=== PATIENT | female | born 1960 | race Caucasian/White ===

== ENCOUNTER 2020-01-07 13:03 | Emergency (ER) | payer BC, OTHER ==
--- NOTE | 2020-01-07 13:42 | EDM.PDOC ---
ED HPI GENERAL MEDICAL PROBLEM - General Chief Complaint: General Stated Complaint: FLUID BUILD UP IN R/LEG Time Seen by Provider: 01/07/20 13:20 - History of Present Illness INITIAL COMMENTS - FREE TEXT/NARRATIVE: Presents reporting right lower extremity swelling and shortness of breath. Patient states that on Monday she had some shortness of breath, went to see her primary provider, a chest x-ray revealed "little fluid around the lungs". She had some blood work and was placed on an antibiotic. This morning she has had increasing swelling in her right calf and it feels like "cement". She has a history of hypertension, depression and obesity. She does not smoke. Left Lower Leg Pain Score (Numeric/FACES): 7 - Related Data Allergies Allergy/AdvReac Type Severity Reaction Status Date / Time No Known Allergies Allergy Verified 01/07/20 13:47 Home Meds: Home Meds Sertraline [Zoloft] 50 mg PO DAILY 07/04/14 [History] valACYclovir HCl [Valtrex] 500 mg PO ASDIRECTED PRN 07/04/14 [History] Doxycycline [Vibramycin] 100 mg PO BID 01/07/20 [History] Rivaroxaban [Xarelto] 15 mg PO BID 21 Days #42 tab 01/07/20 [Rx] amLODIPine [Norvasc] 10 mg PO DAILY 01/07/20 [History] lisinopriL [Lisinopril] 30 mg PO DAILY 01/07/20 [History] Past Medical History HEENT History: Reports: None Cardiovascular History: Reports: Hypertension Respiratory History: Reports: None Gastrointestinal History: Reports: Colon Polyp Genitourinary History: Reports: None [employer] History: Reports: Musculoskeletal History: Reports: Fracture, Osteoarthritis Neurological History: Reports: None Psychiatric History: Reports: Depression Endocrine/Metabolic History: Reports: Obesity/BMI 30+ Hematologic History: Reports: None Immunologic History: Reports: None Oncologic (Cancer) History: Reports: None Dermatologic History: Reports: None - Past Surgical History Head Surgeries/Procedures: Reports: None GI Surgical History: Reports: Colonoscopy Female Surgical History: Reports: Hysterectomy ED ROS GENERAL - Review of Systems Review Of Systems: Comprehensive ROS is negative, except as noted in HPI. ED EXAM, GENERAL - Physical Exam Exam: See Below Exam Limited By: No Limitations General Appearance: Alert, No Apparent Distress Ears: Normal External Exam Respiratory/Chest: Lungs Clear, Normal Breath Sounds, Respiratory Distress (Mild tachypnea and dyspnea) Cardiovascular: Normal Peripheral Pulses, Regular Rate, Rhythm, No Murmur GI/Abdominal: Soft, Tender (Existing previously left upper quadrant) Back Exam: Normal Inspection, Full Range of Motion, Vertebral Tenderness (Over T10 pre-existing). No: CVA Tenderness (L), CVA Tenderness (R) Extremities: Other (Right calf ankle and forefoot swelling, pink. Strong pedal pulse. Full range of motion without hesitation or limitation of the ankle and toes. No tenderness.) Neurological: Alert, Oriented, Normal Cognition Psychiatric: Normal Affect, Normal Mood Skin Exam: Warm, Dry, Intact, Normal Color, No Rash Lymphatic: No Adenopathy Course - Vital Signs Last Recorded V/S: Last Vital Signs Temp 37.6 C 01/07/20 13:20 Pulse 69 01/07/20 15:26 Resp 16 01/07/20 15:26 BP 148/79 H 01/07/20 15:26 Pulse Ox 99 01/07/20 15:26 - Orders/Labs/Meds Labs: Laboratory Tests 01/07/20 01/07/20 Range/Units 13:37 13:37 WBC 11.07 H (4.0-11.0) K/uL RBC 4.30 (4.30-5.90) M/uL Hgb 13.5 (12.0-16.0) g/dL Hct 41.5 (36.0-46.0) % MCV 96.5 (80.0-98.0) fL MCH 31.4 (27.0-32.0) pg MCHC 32.5 (31.0-37.0) g/dL RDW Std Deviation 49.4 (28.0-62.0) fl RDW Coeff of Ashly 14 (11.0-15.0) % Plt Count 251 (150-400) K/uL MPV 10.40 (7.40-12.00) fL Neut % (Auto) 67.2 (48.0-80.0) % Lymph % (Auto) 21.1 (16.0-40.0) % Carver % (Auto) 8.3 (0.0-15.0) % Eos % (Auto) 2.9 (0.0-7.0) % Baso % (Auto) 0.5 (0.0-1.5) % Neut # (Auto) 7.4 H (1.4-5.7) K/uL Lymph # (Auto) 2.3 (0.6-2.4) K/uL Carver # (Auto) 0.9 H (0.0-0.8) K/uL Eos # (Auto) 0.3 (0.0-0.7) K/uL Baso # (Auto) 0.1 (0.0-0.1) K/uL Nucleated RBC % 0.0 /100WBC Nucleated RBCs # 0 K/uL Sodium 141 (136-145) mmol/L Potassium 3.7 (3.5-5.1) mmol/L Chloride 103 (98-107) mmol/L Carbon Dioxide 25.2 (21.0-32.0) mmol/L BUN 17 (7.0-18.0) mg/dL Creatinine 1.1 H (0.6-1.0) mg/dL Est Cr Clr Drug Dosing 50.91 mL/min Estimated GFR (MDRD) 50.7 ml/min Glucose 115 H (74-106) mg/dL Calcium 8.7 (8.5-10.1) mg/dL Total Bilirubin 0.4 (0.2-1.0) mg/dL AST 15 (15-37) IU/L ALT 20 (14-63) IU/L Alkaline Phosphatase 80 (46-116) U/L Total Protein 6.9 (6.4-8.2) g/dL Albumin 3.5 (3.4-5.0) g/dL Globulin 3.4 (2.6-4.0) g/dL Albumin/Globulin Ratio 1.0 (0.9-1.6) Meds: Medications Discontinued Medications Generic Name Dose Route Start Last Admin Trade Name Freq PRN Reason Stop Dose Admin Iopamidol 75 ml 01/07/20 15:12 01/07/20 15:13 Isovue Multipack-370 (76%) IVPUSH 01/07/20 15:13 75 ml ONETIME STA Administration Departure - Departure Time of Disposition: 15:43 Disposition: Home, Self-Care 01 Condition: Good Clinical Impression: Deep vein blood clot of right lower extremity Qualifiers: Affected thrombotic vein of extremity: popliteal Chronicity: acute Qualified Code(s): I82.431 - Acute embolism and thrombosis of right popliteal vein Pulmonary embolism Qualifiers: Pulmonary embolism type: single subsegmental (without acute cor pulmonale) Qualified Code(s): I26.93 - Single subsegmental pulmonary embolism without acute cor pulmonale - Discharge Information Prescriptions: Rivaroxaban [Xarelto] 15 mg PO BID 21 Days #42 tab Referrals: Mey Stevens DO [Primary Care Provider] - Forms: ED Department Discharge Additional Instructions: The following information is given to patients seen in the emergency department who are being discharged to home. This information is to outline your options for follow-up care. We provide all patients seen in our emergency department with a follow-up referral. The need for follow-up, as well as the timing and circumstances, are variable depending upon the specifics of your emergency department visit. If you don't have a primary care physician on staff, we will provide you with a referral. We always advise you to contact your personal physician following an emergency department visit to inform them of the circumstance of the visit and for follow-up with them and/or the need for any referrals to a consulting specialist. The emergency department will also refer you to a specialist when appropriate. This referral assures that you have the opportunity for follow-up care with a specialist. All of these measure are taken in an effort to provide you with optimal care, which includes your follow-up. Under all circumstances we always encourage you to contact your private physician who remains a resource for coordinating your care. When calling for follow-up care, please make the office aware that this follow-up is from your recent emergency room visit. If for any reason you are refused follow-up, please contact the [facility] Emergency Department at and asked to speak to the emergency department charge nurse. 1. Start Xarelto 15 mg twice daily for 21 days--RX sent to pharmacy. After that you will need to be on 20 mg once daily. Get that prescription from your primary provider. Take this medication with food 2. Follow-up with your primary provider. 3. Signs to return to the emergency room include shortness of breath, severe headache, worsening swelling. Sepsis Event Note (ED) - Focused Exam Vital Signs: Vital Signs Temp Pulse Resp BP Pulse Ox 01/07/20 15:26 69 16 148/79 H 99 01/07/20 13:20 37.6 C 78 20 173/93 H 95
[2020-01-07 14:07] LABS: CARBON DIOXIDE,CO2 25.2 mmol/L (21.0-32.0); POTASSIUM,K 3.7 mmol/L (3.5-5.1)
--- NOTE | 2020-01-07 14:31 | US ---
INDICATION: [id number] right lower extremity swelling TECHNIQUE: Ultrasound venous duplex upper right extremity. Compression venous exam was performed using coffey-scale, color Doppler, and spectral Doppler imaging. COMPARISON: None. FINDINGS: There is demonstration of noncompressibility of the popliteal vein with likely partial thrombus. The posterior tibials superficial femoral and common femoral veins are otherwise compressible. IMPRESSION: Demonstration of deep venous thrombosis within the popliteal vein. Dictated by Andrea Webb MD @ Jan 07 2020 2:27PM Signed by Dr. Andrea Webb @ Jan 07 2020 2:29PM
[2020-01-07] MEDS ORDERED: Iopamidol 755 MG/ML 500 ML Multipack Bottle IVPUSH STA (15:12)
--- NOTE | 2020-01-07 15:36 | CT ---
Indication: Shortness of breath, leg swelling Technique: Volumetric multidetector CT images of the chest were obtained after the administration of IV contrast. 75 cc Isovue 370 Comparison: None available. Findings: The thoracic inlet and thyroid gland are unremarkable. The thoracic aorta is nonaneurysmal. There are filling defects within the right lower lobe subsegmental pulmonary arteries. There is mild prominence of the main pulmonary artery. There is no definite intraventricular septal inversion. There is no mediastinal, hilar or axillary adenopathy. The trachea and bronchi are well aerated without significant bronchiectasis. There is dependent bibasilar atelectasis and parenchymal scarring without definite dense consolidation. There is focal rounded atelectasis within the anterior inferior aspect of the left upper lobe within the lingula. There is no evidence of pulmonary mass or suspicious pulmonary nodule. The partially visualized upper abdomen demonstrates moderate hepatomegaly and hepatic steatosis. There is a moderate hiatal hernia. The thoracic vertebral body heights are grossly maintained with moderate multilevel degenerative disc disease. There are flowing anterior osteophytes. There is no significant spondylolisthesis or displaced fracture. Impression: Demonstration of a small subsegmental filling defect within the right lower lobe pulmonary artery and dilatation of the main pulmonary artery commensurate with pulmonary embolus and elevated pulmonary arterial pressure. Somewhat rounded atelectasis appreciated within the lingula but otherwise no evidence of acute cardiopulmonary abnormalities appreciated. Findings discussed with Dr. Quinones at 3:35 p.m. 01/07/[address] Please note that all CT scans at this facility use dose modulation, iterative reconstruction, and/or weight-based dosing when appropriate to reduce radiation dose to as low as reasonably achievable. Dictated by Andrea Webb MD @ Jan 07 2020 3:23PM Signed by Dr. Andrea Webb @ Jan 07 2020 3:35PM
[2020-01-07 15:58] VITALS: BP 143/88; PULSE 66
== END 2020-01-07 16:02 | disposition home or self-care (01) ==
LOC: MW.ED 13:03
DX: I82.431 Acute embolism and thrombosis of right popliteal vein (principal); I26.93 Single subsegmental thrombotic pulmonary embolism without acute cor pulmonale; F32.9 Major depressive disorder, single episode, unspecified; I10 Essential (primary) hypertension; E66.9 Obesity, unspecified; Z68.41 Body mass index [BMI] 40.0-44.9, adult; Z79.01 Long term (current) use of anticoagulants; Z79.899 Other long term (current) drug therapy
CPT/HCPCS: 36415; 71275; 80053; 85025; 93971; 99285; Q9967; 99283

== ENCOUNTER 2021-01-27 19:26 | Inpatient (IN) | payer SELFPAY ==
[2021-01-27] MEDS ORDERED: Sodium Chloride 0.9% 10 ML Syringe FLUSH PRN (20:04)
[2021-01-27] MEDS ORDERED: Sodium Chloride 0.9% 2.5 ML Syringe FLUSH PRN (20:04)
[2021-01-27] MEDS ORDERED: Albuterol 8 GM Inhaler INH STA (20:05)
[2021-01-27] MEDS ORDERED: Benzonatate 100 MG Cap PO ONE (20:06)
--- NOTE | 2021-01-27 20:08 | EDM.PDOC ---
ED HPI GENERAL MEDICAL PROBLEM - General Chief Complaint: Respiratory Problem Stated Complaint: COVID POS, DIFFICULTY BREATHING, LOW OXYGEN Time Seen by Provider: 01/27/21 19:31 - History of Present Illness INITIAL COMMENTS - FREE TEXT/NARRATIVE: History of present illness: [] This 60-year-old female who is treated for hypertension and has a history of pulmonary embolus reports that she has cough and shortness of breath for 2 weeks. 17 January she was diagnosed as COVID-19 positive. She continued to progressively get more short of breath. Over the last 4 days she has had significant shortness of breath and dyspnea on exertion with cough and hemoptysis. Her primary symptom is shortness of breath. She has no chest pain she does have diffuse body aches. She is suffering fatigue. She did not take her blood pressure medicine today because she simply did not have the energy or forgot. Review of systems: As per history of present illness and below otherwise all systems reviewed and negative. Past medical history: As per history of present illness and as reviewed below otherwise noncontributory. Surgical history: As per history of present illness and as reviewed below otherwise noncontributory. Social history: No reported history of drug or alcohol abuse. Family history: As per history of present illness and as reviewed below otherwise noncontributory. Physical exam: Constitutional - well developed, well-nourished and in no acute distress HEENT - normocephalic, no evidence of trauma - external nose and mouth normal - no mass in neck and no JVD - mucosae moist EYES - full EOM, PERRL, no icterus - no evidence of inflammation, injection, or drainage Respiratory -moderate respiratory distress, equal bilateral expansion, lungs with scattered rhonchi. Slightly prolonged expiratory phase of respiration. Oxygen saturation in the 70s which is profoundly low. On 100% nonrebreather she is only saturating 90 to 91%. She is working a little bit to breathe. She does not have oxygen at home. Cardiovascular - Regular Rhythm with S1 and S2 appreciated and no murmur, gallop or rub. GI - abdomen soft without distension or organomegaly - normal bowel sounds - no guard or rebound Musculoskeletal no gross deformity of long bones or joints - no tenderness, swelling or edema Neurologic - Alert and oriented times four - CN II-XII grossly intact - motor sensory and coordination symmetrically normal Psychiatric - appropriate mood and affect with normal thought content Hematologic - No petechiae or purpura - mucosa appropriate color and sclera not pale - normal nail bed color and refill Integument - no rash or evidence of trauma - normal turgor Diagnostics: [] Therapeutics: [] Impression: [] Plan: [] Definitive disposition and diagnosis as appropriate pending reevaluation and review of above. - Related Data Allergies Allergy/AdvReac Type Severity Reaction Status Date / Time No Known Allergies Allergy Verified 01/27/21 20:26 Home Meds: Home Meds Sertraline [Zoloft] 100 mg PO DAILY 07/04/14 [History] valACYclovir HCl [Valtrex] 500 mg PO ASDIRECTED PRN 07/04/14 [History] Doxycycline [Vibramycin] 100 mg PO BID 01/07/20 [History] Rivaroxaban [Xarelto] 15 mg PO BID 21 Days #42 tab 01/07/20 [Rx] amLODIPine [Norvasc] 10 mg PO DAILY 01/07/20 [History] lisinopriL [Lisinopril] 30 mg PO DAILY 01/07/20 [History] Past Medical History HEENT History: Reports: None Cardiovascular History: Reports: Hypertension Respiratory History: Reports: None Gastrointestinal History: Reports: Colon Polyp Genitourinary History: Reports: None 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: Musculoskeletal History: Reports: Fracture, Osteoarthritis Neurological History: Reports: None Psychiatric History: Reports: Depression Endocrine/Metabolic History: Reports: Obesity/BMI 30+ Hematologic History: Reports: None Immunologic History: Reports: None Oncologic (Cancer) History: Reports: None Dermatologic History: Reports: None - Infectious Disease History Infectious Disease History: Reports: None - Past Surgical History Head Surgeries/Procedures: Reports: None GI Surgical History: Reports: Colonoscopy Female Surgical History: Reports: Hysterectomy Social & Family History - Caffeine Use Caffeine Use: Reports: Coffee, Tea ED ROS GENERAL - Review of Systems Review Of Systems: Comprehensive ROS is negative, except as noted in HPI. ED EXAM, GENERAL - Physical Exam Exam: See Below Free Text/Narrative:: My physical exam is in the HPI #1 Interpretation EKG Interpretation Comments: EKG done 01/27/2021 at 8:08 PM shows sinus rhythm heart rate 78 AK 142 axis 51 compared to 07/22/2014 no change impression no acute injury Course - Vital Signs Last Recorded V/S: Last Vital Signs Temp 39.2 C H 01/27/21 20:42 Pulse 66 01/27/21 22:00 Resp 24 H 01/27/21 22:00 BP 123/76 01/27/21 22:00 Pulse Ox 92 L 01/27/21 22:00 - Orders/Labs/Meds Orders: Active Orders 24 hr Category Date Time Status Communication Order [RC] STAT Care 01/27/21 20:08 Active RT Post Treatment Assessment [RC] Click to Edit Care 01/27/21 20:05 Active RT Pre-Treatment Assessment [RC] Click to Edit Care 01/27/21 20:05 Active INFLUENZA A+B AG SCREEN [] Stat Lab 01/27/21 22:00 Received Sodium Chloride 0.9% [Normal Saline] 1,000 ml Med 01/27/21 20:30 Active IV ASDIRECTED Sodium Chloride 0.9% [Saline Flush] Med 01/27/21 20:04 Active 10 ml FLUSH ASDIRECTED PRN Sodium Chloride 0.9% [Saline Flush] Med 01/27/21 20:04 Active 2.5 ml FLUSH ASDIRECTED PRN Isolation [COMM] Routine Oth 01/27/21 21:55 Active Saline Lock Insert [OM.PC] Stat Oth 01/27/21 20:04 Ordered Medication Orders Sodium Chloride (Normal Saline) 1,000 mls @ 125 mls/hr IV ASDIRECTED ELIZABETH Last Admin: 01/27/21 20:42 Dose: 125 mls/hr Documented by: MAYCOL Sodium Chloride (Sodium Chloride 0.9% 10 Ml Syringe) 10 ml FLUSH ASDIRECTED PRN PRN Reason: Keep Vein Open Last Admin: 01/27/21 20:42 Dose: 10 ml Documented by: MAYCOL Sodium Chloride (Sodium Chloride 0.9% 2.5 Ml Syringe) 2.5 ml FLUSH ASDIRECTED PRN PRN Reason: Keep Vein Open Last Admin: 01/27/21 20:42 Dose: 2.5 ml Documented by: MAYCOL Labs: Laboratory Tests 01/27/21 01/27/21 01/27/21 Range/Units 19:40 19:40 19:40 WBC 4.69 (4.0-11.0) K/uL RBC 4.50 (4.30-5.90) M/uL Hgb 14.0 (12.0-16.0) g/dL Hct 41.6 (36.0-46.0) % MCV 92.4 (80.0-98.0) fL MCH 31.1 (27.0-32.0) pg MCHC 33.7 (31.0-37.0) g/dL RDW Std Deviation 47.7 (28.0-62.0) fl RDW Coeff of Ashly 14 (11.0-15.0) % Plt Count 182 (150-400) K/uL MPV 10.30 (7.40-12.00) fL Neut % (Auto) 72.7 (48.0-80.0) % Lymph % (Auto) 17.7 (16.0-40.0) % [place] % (Auto) 9.2 (0.0-15.0) % Eos % (Auto) 0.0 (0.0-7.0) % Baso % (Auto) 0.4 (0.0-1.5) % Neut # (Auto) 3.4 (1.4-5.7) K/uL Lymph # (Auto) 0.8 (0.6-2.4) K/uL [place] # (Auto) 0.4 (0.0-0.8) K/uL Eos # (Auto) 0.0 (0.0-0.7) K/uL Baso # (Auto) 0.0 (0.0-0.1) K/uL Nucleated RBC % 0.0 /100WBC Nucleated RBCs # 0 K/uL INR 1.02 APTT 34.8 H (18.6-31.3) SEC D-Dimer, Quantitative 1.01 H (0.0-0.50) mg/L FEU Sodium 133 L (136-145) mmol/L Potassium 4.0 (3.5-5.1) mmol/L Chloride 99 (98-107) mmol/L Carbon Dioxide 24.7 (21.0-32.0) mmol/L BUN 12 (7.0-18.0) mg/dL Creatinine 1.0 (0.6-1.0) mg/dL Est Cr Clr Drug Dosing TNP Estimated GFR (MDRD) 56.4 ml/min Glucose 120 H (74-106) mg/dL Calcium 8.0 L (8.5-10.1) mg/dL Total Bilirubin 0.6 (0.2-1.0) mg/dL Direct Bilirubin (0.0-0.5) mg/dL AST 49 H (15-37) IU/L ALT 42 (14-63) IU/L Alkaline Phosphatase 45 L (46-116) U/L Troponin I < 0.050 (0.000-0.056) ng/mL B-Natriuretic Peptide (<100) PG/ML Total Protein 6.9 (6.4-8.2) g/dL Albumin 2.9 L (3.4-5.0) g/dL Globulin 4.0 (2.6-4.0) g/dL Albumin/Globulin Ratio 0.7 L (0.9-1.6) 01/27/21 01/27/21 Range/Units 19:40 19:40 WBC (4.0-11.0) K/uL RBC (4.30-5.90) M/uL Hgb (12.0-16.0) g/dL Hct (36.0-46.0) % MCV (80.0-98.0) fL MCH (27.0-32.0) pg MCHC (31.0-37.0) g/dL RDW Std Deviation (28.0-62.0) fl RDW Coeff of Ashly (11.0-15.0) % Plt Count (150-400) K/uL MPV (7.40-12.00) fL Neut % (Auto) (48.0-80.0) % Lymph % (Auto) (16.0-40.0) % [place] % (Auto) (0.0-15.0) % Eos % (Auto) (0.0-7.0) % Baso % (Auto) (0.0-1.5) % Neut # (Auto) (1.4-5.7) K/uL Lymph # (Auto) (0.6-2.4) K/uL [place] # (Auto) (0.0-0.8) K/uL Eos # (Auto) (0.0-0.7) K/uL Baso # (Auto) (0.0-0.1) K/uL Nucleated RBC % /100WBC Nucleated RBCs # K/uL INR APTT (18.6-31.3) SEC D-Dimer, Quantitative (0.0-0.50) mg/L FEU Sodium (136-145) mmol/L Potassium (3.5-5.1) mmol/L Chloride (98-107) mmol/L Carbon Dioxide (21.0-32.0) mmol/L BUN (7.0-18.0) mg/dL Creatinine (0.6-1.0) mg/dL Est Cr Clr Drug Dosing Estimated GFR (MDRD) ml/min Glucose (74-106) mg/dL Calcium (8.5-10.1) mg/dL Total Bilirubin (0.2-1.0) mg/dL Direct Bilirubin 0.20 (0.0-0.5) mg/dL AST (15-37) IU/L ALT (14-63) IU/L Alkaline Phosphatase (46-116) U/L Troponin I (0.000-0.056) ng/mL B-Natriuretic Peptide 48 (<100) PG/ML Total Protein (6.4-8.2) g/dL Albumin (3.4-5.0) g/dL Globulin (2.6-4.0) g/dL Albumin/Globulin Ratio (0.9-1.6) Meds: Medications Generic Name Dose Route Start Last Admin Trade Name Freq PRN Reason Stop Dose Admin Sodium Chloride 1,000 mls @ 125 mls/hr 01/27/21 20:30 01/27/21 20:42 Normal Saline IV 125 mls/hr ASDIRECTED ELIZABETH Administration Sodium Chloride 10 ml 01/27/21 20:04 01/27/21 20:42 Sodium Chloride 0.9% 10 Ml Syringe FLUSH 10 ml ASDIRECTED PRN Administration Keep Vein Open Sodium Chloride 2.5 ml 01/27/21 20:04 01/27/21 20:42 Sodium Chloride 0.9% 2.5 Ml Syringe FLUSH 2.5 ml ASDIRECTED PRN Administration Keep Vein Open Discontinued Medications Generic Name Dose Route Start Last Admin Trade Name Freq PRN Reason Stop Dose Admin Acetaminophen 650 mg 01/27/21 20:19 01/27/21 20:42 Acetaminophen 325 Mg Tab PO 01/27/21 20:20 650 mg NOW ONE Administration Acetaminophen Confirm 01/27/21 20:19 01/27/21 20:30 Acetaminophen 325 Mg Tab Administered 01/27/21 20:20 Not Given Dose 650 mg .ROUTE .STK-MED ONE Albuterol 8 gm 01/27/21 20:05 01/27/21 20:41 Albuterol 8 Gm Inhaler INH 01/27/21 20:06 8 gm ONETIME STA Administration Benzonatate 200 mg 01/27/21 20:06 01/27/21 20:43 Benzonatate 100 Mg Cap PO 01/27/21 20:07 200 mg ONETIME ONE Administration Remdesivir 200 mg/ Sodium 250 mls @ 250 mls/hr 01/27/21 20:51 01/27/21 21:40 Chloride IV 01/27/21 20:52 250 mls/hr ONETIME ONE Administration Ceftriaxone Sodium/Dextrose 1 50 mls @ 100 mls/hr 01/27/21 21:31 01/27/21 22:26 gm/ Premix IV 01/27/21 22:00 Not Given ONETIME ONE Iopamidol 75 ml 01/27/21 21:58 01/27/21 21:59 Iopamidol 755 Mg/Ml 500 Ml Multipack Bottle IVPUSH 01/27/21 21:59 75 ml ONETIME STA Administration Iopamidol 75 ml 01/27/21 21:58 01/27/21 22:00 Iopamidol 755 Mg/Ml 500 Ml Multipack Bottle IVPUSH 01/27/21 21:59 75 ml ONETIME STA Administration Ondansetron HCl 4 mg 01/27/21 20:19 01/27/21 20:43 Ondansetron 4 Mg/2 Ml Sdv IVPUSH 01/27/21 20:20 4 mg ONETIME ONE Administration Ondansetron HCl Confirm 01/27/21 20:19 01/27/21 20:31 Ondansetron 4 Mg/2 Ml Sdv Administered 01/27/21 20:20 Not Given Dose 4 mg .ROUTE .STK-MED ONE - Re-Assessments/Exams Free Text/Narrative Re-Assessment/Exam: 01/27/21 21:31 Patient felt better on oxygen. With a high flow at 94% FiO2 and 42 PSI she is maintaining oxygen at 9091% BiPAP set up in the ICU in case she needs it. Her D-dimer was positive so she is in CT getting a scan. 01/27/21 22:37 CT was inconclusive. The patient however is already on Xarelto. With hemoptysis I feel like it might be risky to add any additional anticoagulation. Discussed with Dr. Chung and he most graciously excepted the patient. With only one ICU bed available and BiPAP set up as a standby he requested I place her in that ICU bed. The ground ambulance available to us [facility] is already is left for [place] and will not be back until 3 or 4 in the morning at the earliest. If she should deteriorate and we had taken that unit bed transportation would be a serious issue. The safest thing for the patient would be to put her in the ICU now and try to transfer out in the morning. 01/27/21 22:38 Due to a high probability of clinically significant, life threatening deterioration, the patient required my highest level of preparedness to intervene emergently and I personally spent this critical care time directly and personally managing the patient. This critical care time included obtaining a history; examining the patient; pulse oximetry; ordering and review of studies; arranging urgent treatment with development of a management plan; evaluation of patient's response to treatment; frequent reassessment; and, discussions with other providers. This critical care time was performed to assess and manage the high probability of imminent, life-threatening deterioration that could result in multi-organ failure. It was exclusive of separately billable procedures and treating other patients and teaching time. 37 minutes. This patient was seen and evaluated during the 2019 SARS-CoV-2 novel coronavirus pandemic period. Community viral transmission is ongoing at time of this encounter and the emergency department is operating under pandemic response procedures. Departure - Departure Time of Disposition: 22:42 Disposition: Admitted As Inpatient 65 Condition: Fair Clinical Impression: Pneumonia due to COVID-19 virus, Hypoxia, Hemoptysis, Fever, History of pulmonary embolus (PE), Chronic anticoagulation - Discharge Information Referrals: Mey Stevens DO [Primary Care Provider] - Forms: ED Department Discharge Sepsis Event Note (ED) - Focused Exam Vital Signs: Vital Signs Temp Temp Pulse Resp BP Pulse Ox 01/27/21 22:00 66 24 H 123/76 92 L 01/27/21 21:00 65 24 H 114/61 92 L 11/24/21 20:42 39.2 C H 01/27/21 20:23 39.2 C H 91 24 H 141/78 H 73 L - My Orders Last 24 Hours: My Active Orders 01/27/21 20:04 Sodium Chloride 0.9% [Saline Flush] 10 ml FLUSH ASDIRECTED PRN Sodium Chloride 0.9% [Saline Flush] 2.5 ml FLUSH ASDIRECTED PRN Saline Lock Insert [OM.PC] Stat 01/27/21 20:05 RT Post Treatment Assessment [RC] Click to Edit RT Pre-Treatment Assessment [RC] Click to Edit 01/27/21 20:08 Communication Order [RC] STAT 01/27/21 20:30 Sodium Chloride 0.9% [Normal Saline] 1,000 ml IV ASDIRECTED 01/27/21 21:55 Isolation [COMM] Routine 01/27/21 22:00 INFLUENZA A+B AG SCREEN [RM] Stat - Assessment/Plan Last 24 Hours: My Active Orders 01/27/21 20:04 Sodium Chloride 0.9% [Saline Flush] 10 ml FLUSH ASDIRECTED PRN Sodium Chloride 0.9% [Saline Flush] 2.5 ml FLUSH ASDIRECTED PRN Saline Lock Insert [OM.PC] Stat 01/27/21 20:05 RT Post Treatment Assessment [RC] Click to Edit RT Pre-Treatment Assessment [RC] Click to Edit 01/27/21 20:08 Communication Order [RC] STAT 01/27/21 20:30 Sodium Chloride 0.9% [Normal Saline] 1,000 ml IV ASDIRECTED 01/27/21 21:55 Isolation [COMM] Routine 01/27/21 22:00 INFLUENZA A+B AG SCREEN [RM] Stat
[2021-01-27] MEDS ORDERED: Ondansetron 4 MG/2 ML SDV ONE (20:19)
[2021-01-27] MEDS ORDERED: Acetaminophen 325 MG Tab PO ONE (20:19)
[2021-01-27] MEDS ORDERED: Acetaminophen 325 MG Tab ONE (20:19)
[2021-01-27] MEDS ORDERED: Ondansetron 4 MG/2 ML SDV IVPUSH ONE (20:19)
[2021-01-27 20:25] LABS: BLOOD UREA NITROGEN,BUN 12 mg/dL (7.0-18.0); CARBON DIOXIDE,CO2 24.7 mmol/L (21.0-32.0); CHLORIDE,CL 99 mmol/L (98-107); GLUCOSE RANDOM 120 mg/dL (74-106); SODIUM,NA 133 mmol/L (136-145)
--- NOTE | 2021-01-27 20:38 | CR ---
INDICATION: Dyspnea. TECHNIQUE: Upright portable AP image of the chest. COMPARISON: None. FINDINGS: Shallow inspiration. Lower left lung infiltrate, right upper lobe infiltrate with some degree of atelectasis and presumed medial right base infiltrate. No obvious pleural effusion. Heart size at the upper limit of normal. Pulmonary veins grossly normal in caliber. No significant bony abnormality. IMPRESSION: Bilateral infiltrates, as above. Dictated by Vin Gordon MD @ 01/27/2021 8:35:58 PM (Electronically Signed)
[2021-01-27] MEDS: Sodium Chloride 0.9% 1,000 ML IV SCH (20:42)
[2021-01-27] MEDS ORDERED: REMDESIVIR 200 MG in Sodium Chloride 0.9% 250 ML IV ONE (20:51)
[2021-01-27] MEDS ORDERED: cefTRIAXone 1 GM in Premix Bag 1 BAG IV ONE (21:31)
[2021-01-27] MEDS ORDERED: Iopamidol 755 MG/ML 500 ML Multipack Bottle IVPUSH STA ×2 (21:58)
--- NOTE | 2021-01-27 22:29 | CT ---
INDICATION: COVID positive, positive D-dimer, hypoxia TECHNIQUE: CT chest pulmonary PE protocol acquired with 75 cc Isovue 370 IV contrast. COMPARISON: None FINDINGS: Cardiovascular structures: Suboptimal opacification of the pulmonary arteries. Pulmonary embolism cannot be excluded with this exam. The main pulmonary artery measures 4.2 cm. Cardiomegaly. No sign of aneurysm in the thoracic aorta. Mediastinum and jose: 1.3 cm right paratracheal lymph node. Small hiatal hernia. Lungs: Patchy areas of airspace consolidation in both lungs. Pleura and pericardium: No effusions. Chest wall and axilla: No mass or adenopathy. Upper abdomen: Hepatic steatosis. Bones: No significant findings. IMPRESSION: Suboptimal opacification of the pulmonary arteries. Pulmonary embolism cannot be excluded with this exam. Patchy areas of airspace consolidation in both lungs consistent with infection. The appearance is more typical for bacterial pneumonia although findings could be due to COVID-19 infection. Right paratracheal lymphadenopathy. Cardiomegaly. Dilated main pulmonary artery suggests pulmonary arterial hypertension. Hepatic steatosis. Small hiatal hernia. Please note that all CT scans at this facility use dose modulation, iterative reconstruction, and/or weight-based dosing when appropriate to reduce radiation dose to as low as reasonably achievable. Dictated by Belem Garnett MD @ 01/27/2021 10:29:09 PM (Electronically Signed)
[2021-01-27] MEDS ORDERED: Acetaminophen/HYDROcodone 325-5 MG Tab PO PRN (22:49)
[2021-01-27] MEDS ORDERED: Albuterol 0.083% 2.5 MG/3 ML Neb Soln NEB PRN (22:49)
[2021-01-27] MEDS ORDERED: Rivaroxaban 15 MG Tab PO SCH ×2 (23:00→23:15)
[2021-01-27] MEDS ORDERED: Enoxaparin 40 MG/0.4 ML Syringe SUBCUT SCH (23:00)
[2021-01-28] MEDS: Rivaroxaban 10 MG Tab PO SCH ×2 (01:18→20:01)
[2021-01-28] MEDS: Albuterol/Ipratropium 3.0-0.5 MG/3 ML Neb Soln NEB SCH ×6 (01:19→21:02)
[2021-01-28] MEDS: Sodium Chloride 0.9% 1,000 ML IV SCH ×2 (04:58→13:00)
[2021-01-28 07:38] LABS: BLOOD UREA NITROGEN,BUN 12 mg/dL (7.0-18.0); CARBON DIOXIDE,CO2 26.3 mmol/L (21.0-32.0); CHLORIDE,CL 104 mmol/L (98-107); GLUCOSE RANDOM 90 mg/dL (74-106); SODIUM,NA 139 mmol/L (136-145)
[2021-01-28] MEDS ORDERED: Dexamethasone 4 MG Tab PO SCH (09:00)
[2021-01-28] MEDS: amLODIPine 5 MG Tab PO SCH (09:30)
[2021-01-28] MEDS: Sertraline 50 MG Tab PO SCH (10:15)
[2021-01-28] MEDS: Lisinopril 10 MG Tab PO SCH (10:19)
--- NOTE | 2021-01-28 14:10 | PCM.HP.2 ---
H&P History of Present Illness - General Date of Service: 01/27/21 Admit Problem/Dx: Admission Diagnosis/Problem Admission Diagnosis/Problem Hypoxia - History of Present Illness Initial Comments - Free Text/Narative: This 60-year-old female who is treated for hypertension and has a history of pulmonary embolus reports that she has cough and shortness of breath for 2 weeks. 17 January she was diagnosed as COVID-19 positive. She continued to progressively get more short of breath. Over the last 4 days she has had significant shortness of breath and dyspnea on exertion with cough and hemoptysis. Her primary symptom is shortness of breath. She has no chest pain she does have diffuse body aches. She is suffering fatigue. She did not take her blood pressure medicine today because she simply did not have the energy or forgot. - Related Data Allergies/Adverse Reactions: Allergies Allergy/AdvReac Type Severity Reaction Status Date / Time No Known Allergies Allergy Verified 01/28/21 01:01 Home Medications: Home Meds Sertraline [Zoloft] 100 mg PO DAILY 07/04/14 [History] amLODIPine [Norvasc] 10 mg PO DAILY 01/07/20 [History] lisinopriL [Lisinopril] 30 mg PO DAILY 01/07/20 [History] Rivaroxaban [Xarelto] 20 mg PO BEDTIME 01/28/21 [History] Past Medical History HEENT History: Reports: None Cardiovascular History: Reports: Hypertension Respiratory History: Reports: None Gastrointestinal History: Reports: Colon Polyp Genitourinary History: Reports: None [employer] History: Reports: Musculoskeletal History: Reports: Fracture, Osteoarthritis Neurological History: Reports: None Psychiatric History: Reports: Depression Endocrine/Metabolic History: Reports: Obesity/BMI 30+ Hematologic History: Reports: None Immunologic History: Reports: None Oncologic (Cancer) History: Reports: None Dermatologic History: Reports: None - Infectious Disease History Infectious Disease History: Reports: None - Past Surgical History Head Surgeries/Procedures: Reports: None Other HEENT Surgeries/Procedures: wears corrective glasses- near sighted GI Surgical History: Reports: Colonoscopy Female Surgical History: Reports: Hysterectomy, Oophorectomy Other Female Surgeries/Procedures: ovarian cyst- right ovary removed Social & Family History - Family History Family Medical History: No Pertinent Family History - Tobacco Use Tobacco Use Status *Q: Former Tobacco User Years of Tobacco use: 10 Used Tobacco, but Quit: Yes Month/Year Tobacco Last Used: 2015 Second Hand Smoke Exposure: Yes - Caffeine Use Caffeine Use: Reports: Tea - Recreational Drug Use Recreational Drug Use: No H&P Review of Systems - Review of Systems: Review Of Systems: See Below Exam - Exam Exam: See Below - Vital Signs Vital Signs: Last Vital Signs Temp 97.5 F 01/28/21 05:00 Pulse 66 01/27/21 23:00 Resp 21 H 01/28/21 07:00 BP 119/64 01/28/21 10:19 Pulse Ox 88 L 01/28/21 07:00 Weight: 262 lb 11.2 oz - Exam Physical Exam Comments:: General: Obese female. In some degree respiratory distress. CVS: S1S2 appreciated. RRR lungs: Diminished breath sounds. pa: soft, non tender. bowel sounds present ext: no clubbing, cyanosis or edema neuro: moves all extremities. No focal deficits. psych: stable mood and affect - Patient Data Lab Results Last 24 hrs: Laboratory Results - last 24 hr 01/27/21 01/27/21 01/27/21 Range/Units 19:40 19:40 19:40 WBC 4.69 (4.0-11.0) K/uL RBC 4.50 (4.30-5.90) M/uL Hgb 14.0 (12.0-16.0) g/dL Hct 41.6 (36.0-46.0) % MCV 92.4 (80.0-98.0) fL MCH 31.1 (27.0-32.0) pg MCHC 33.7 (31.0-37.0) g/dL RDW Std Deviation 47.7 (28.0-62.0) fl RDW Coeff of Ashly 14 (11.0-15.0) % Plt Count 182 (150-400) K/uL MPV 10.30 (7.40-12.00) fL Neut % (Auto) 72.7 (48.0-80.0) % Lymph % (Auto) 17.7 (16.0-40.0) % [place] % (Auto) 9.2 (0.0-15.0) % Eos % (Auto) 0.0 (0.0-7.0) % Baso % (Auto) 0.4 (0.0-1.5) % Neut # (Auto) 3.4 (1.4-5.7) K/uL Lymph # (Auto) 0.8 (0.6-2.4) K/uL [place] # (Auto) 0.4 (0.0-0.8) K/uL Eos # (Auto) 0.0 (0.0-0.7) K/uL Baso # (Auto) 0.0 (0.0-0.1) K/uL Nucleated RBC % 0.0 /100WBC Nucleated RBCs # 0 K/uL INR 1.02 APTT 34.8 H (18.6-31.3) SEC D-Dimer, Quantitative 1.01 H (0.0-0.50) mg/L FEU Sodium 133 L (136-145) mmol/L Potassium 4.0 (3.5-5.1) mmol/L Chloride 99 (98-107) mmol/L Carbon Dioxide 24.7 (21.0-32.0) mmol/L BUN 12 (7.0-18.0) mg/dL Creatinine 1.0 (0.6-1.0) mg/dL Est Cr Clr Drug Dosing TNP Estimated GFR (MDRD) 56.4 ml/min Glucose 120 H (74-106) mg/dL Calcium 8.0 L (8.5-10.1) mg/dL Total Bilirubin 0.6 (0.2-1.0) mg/dL Direct Bilirubin (0.0-0.5) mg/dL AST 49 H (15-37) IU/L ALT 42 (14-63) IU/L Alkaline Phosphatase 45 L (46-116) U/L Troponin I < 0.050 (0.000-0.056) ng/mL B-Natriuretic Peptide (<100) PG/ML Total Protein 6.9 (6.4-8.2) g/dL Albumin 2.9 L (3.4-5.0) g/dL Globulin 4.0 (2.6-4.0) g/dL Albumin/Globulin Ratio 0.7 L (0.9-1.6) SARS-CoV-2 RNA (JOANN) (NEGATIVE) 01/27/21 01/27/21 01/27/21 Range/Units 19:40 19:40 22:00 WBC (4.0-11.0) K/uL RBC (4.30-5.90) M/uL Hgb (12.0-16.0) g/dL Hct (36.0-46.0) % MCV (80.0-98.0) fL MCH (27.0-32.0) pg MCHC (31.0-37.0) g/dL RDW Std Deviation (28.0-62.0) fl RDW Coeff of Ashly (11.0-15.0) % Plt Count (150-400) K/uL MPV (7.40-12.00) fL Neut % (Auto) (48.0-80.0) % Lymph % (Auto) (16.0-40.0) % [place] % (Auto) (0.0-15.0) % Eos % (Auto) (0.0-7.0) % Baso % (Auto) (0.0-1.5) % Neut # (Auto) (1.4-5.7) K/uL Lymph # (Auto) (0.6-2.4) K/uL [place] # (Auto) (0.0-0.8) K/uL Eos # (Auto) (0.0-0.7) K/uL Baso # (Auto) (0.0-0.1) K/uL Nucleated RBC % /100WBC Nucleated RBCs # K/uL INR APTT (18.6-31.3) SEC D-Dimer, Quantitative (0.0-0.50) mg/L FEU Sodium (136-145) mmol/L Potassium (3.5-5.1) mmol/L Chloride (98-107) mmol/L Carbon Dioxide (21.0-32.0) mmol/L BUN (7.0-18.0) mg/dL Creatinine (0.6-1.0) mg/dL Est Cr Clr Drug Dosing Estimated GFR (MDRD) ml/min Glucose (74-106) mg/dL Calcium (8.5-10.1) mg/dL Total Bilirubin (0.2-1.0) mg/dL Direct Bilirubin 0.20 (0.0-0.5) mg/dL AST (15-37) IU/L ALT (14-63) IU/L Alkaline Phosphatase (46-116) U/L Troponin I (0.000-0.056) ng/mL B-Natriuretic Peptide 48 (<100) PG/ML Total Protein (6.4-8.2) g/dL Albumin (3.4-5.0) g/dL Globulin (2.6-4.0) g/dL Albumin/Globulin Ratio (0.9-1.6) SARS-CoV-2 RNA (JOANN) POSITIVE H (NEGATIVE) 01/28/21 01/28/21 Range/Units 06:15 06:15 WBC 4.02 (4.0-11.0) K/uL RBC 4.27 L (4.30-5.90) M/uL Hgb 13.4 (12.0-16.0) g/dL Hct 40.1 (36.0-46.0) % MCV 93.9 (80.0-98.0) fL MCH 31.4 (27.0-32.0) pg MCHC 33.4 (31.0-37.0) g/dL RDW Std Deviation 49.6 (28.0-62.0) fl RDW Coeff of Ashly 15 (11.0-15.0) % Plt Count 186 (150-400) K/uL MPV 10.30 (7.40-12.00) fL Neut % (Auto) 58.5 (48.0-80.0) % Lymph % (Auto) 33.3 (16.0-40.0) % [place] % (Auto) 8.0 (0.0-15.0) % Eos % (Auto) 0.0 (0.0-7.0) % Baso % (Auto) 0.2 (0.0-1.5) % Neut # (Auto) 2.4 (1.4-5.7) K/uL Lymph # (Auto) 1.3 (0.6-2.4) K/uL [place] # (Auto) 0.3 (0.0-0.8) K/uL Eos # (Auto) 0.0 (0.0-0.7) K/uL Baso # (Auto) 0.0 (0.0-0.1) K/uL Nucleated RBC % 1.1 /100WBC Nucleated RBCs # 0 K/uL INR APTT (18.6-31.3) SEC D-Dimer, Quantitative (0.0-0.50) mg/L FEU Sodium 139 (136-145) mmol/L Potassium 4.0 (3.5-5.1) mmol/L Chloride 104 (98-107) mmol/L Carbon Dioxide 26.3 (21.0-32.0) mmol/L BUN 12 (7.0-18.0) mg/dL Creatinine 0.9 (0.6-1.0) mg/dL Est Cr Clr Drug Dosing 61.45 Estimated GFR (MDRD) > 60.0 ml/min Glucose 90 (74-106) mg/dL Calcium 7.8 L (8.5-10.1) mg/dL Total Bilirubin (0.2-1.0) mg/dL Direct Bilirubin (0.0-0.5) mg/dL AST (15-37) IU/L ALT (14-63) IU/L Alkaline Phosphatase (46-116) U/L Troponin I (0.000-0.056) ng/mL B-Natriuretic Peptide (<100) PG/ML Total Protein (6.4-8.2) g/dL Albumin (3.4-5.0) g/dL Globulin (2.6-4.0) g/dL Albumin/Globulin Ratio (0.9-1.6) SARS-CoV-2 RNA (JOANN) (NEGATIVE) Result Diagrams: 01/28/21 06:15 01/28/21 06:15 Rod Results Last 24 hrs: Microbiology 01/27/21 22:00 Influenza Type A Antigen Screen - Final Nasopharyngeal Swab NEGATIVE INFLUENZA A VIRUS AG REFERENCE RANGE: NEGATIVE Influenza Type B Antigen Screen - Final NEGATIVE INFLUENZA B VIRUS AG REFERENCE RANGE: NEGATIVE Sepsis Event Note - Evaluation Sepsis Screening Result: Possible Sepsis Risk - Focused Exam Vital Signs: Vital Signs Temp Resp BP BP Pulse Ox 01/28/21 10:19 119/64 01/28/21 09:30 119/64 01/28/21 07:00 21 H 113/62 88 L 01/28/21 06:00 28 H 111/67 88 L 01/28/21 05:00 97.5 F 25 H 117/61 87 L 01/28/21 04:00 29 H 106/62 91 L 01/28/21 03:00 27 H 108/60 88 L 01/28/21 02:00 26 H 122/67 92 L - Problem List (1) Pneumonia due to COVID-19 virus SNOMED Code(s): 380515227412765065 ICD Code: U07.1 - COVID-19; J12.82 - PNEUMONIA DUE TO CORONAVIRUS DISEASE 2019 Status: Acute Current Visit: Yes (2) Acute respiratory failure due to COVID-19 SNOMED Code(s): 468437654 ICD Code: U07.1 - COVID-19; J96.00 - ACUTE RESPIRATORY FAILURE, UNSP W HYPOXIA OR HYPERCAPNIA Status: Acute Current Visit: Yes Problem List Initiated/Reviewed/Updated: Yes Orders Last 24hrs: Active Orders 24 hr Category Date Time Status Admission Status [Patient Status] [ADT] Stat ADT 01/27/21 22:39 Active Oxygen Therapy [RC] PRN Care 01/27/21 22:49 Active Pulse Oximetry [RC] CONTINUOUS Care 01/27/21 22:50 Active RT Aerosol Therapy [RC] ASDIRECTED Care 01/27/21 22:54 Active RT Incentive Spirometry [RC] Q1HWA Care 01/27/21 23:00 Active RT Post Treatment Assessment [RC] Click to Edit Care 01/27/21 20:05 Active RT Pre-Treatment Assessment [RC] Click to Edit Care 01/27/21 20:05 Active Up ad Hansa [RC] ASDIRECTED Care 01/27/21 22:49 Active VTE/DVT Education [RC] PER UNIT ROUTINE Care 01/27/21 22:49 Active Vaccine to be Administered/Admin Charge [RC] ASDIRECTED Care 01/28/21 00:12 Active Vital Signs [RC] Q1H Care 01/27/21 22:49 Active Regular Diet [DIET] Diet 01/28/21 Breakfast Active Acetaminophen/HYDROcodone [[place] 325-5 MG] Med 01/27/21 22:49 Active 1 tab PO Q4H PRN Albuterol [Proventil Neb Soln] Med 01/27/21 22:49 Active 2.5 mg NEB Q2H PRN Albuterol/Ipratropium [DuoNeb 3.0-0.5 MG/3 ML] Med 01/28/21 02:00 Active 3 ml NEB Q4HRRT Baricitinib [Olumiant] Med 01/27/21 23:15 Active 4 mg PO DAILY Remdesivir 100 mg Med 01/28/21 21:00 Active Sodium Chloride 0.9% [Normal Saline AdvBag] 100 ml IV Q24H Rivaroxaban [Xarelto] Med 01/28/21 01:07 Active 20 mg PO BEDTIME Sertraline [Zoloft] Med 01/28/21 09:00 Active 100 mg PO DAILY Sodium Chloride 0.9% [Normal Saline] 1,000 ml Med 01/27/21 20:30 Active IV ASDIRECTED Sodium Chloride 0.9% [Saline Flush] Med 01/27/21 20:04 Active 10 ml FLUSH ASDIRECTED PRN Sodium Chloride 0.9% [Saline Flush] Med 01/27/21 20:04 Active 2.5 ml FLUSH ASDIRECTED PRN amLODIPine [Norvasc] Med 01/28/21 09:00 Active 10 mg PO DAILY dexAMETHasone Med 01/28/21 09:00 Active 4 mg PO DAILY lisinopriL [Prinivil] Med 01/28/21 09:00 Active 30 mg PO DAILY Isolation [COMM] Routine Oth 01/27/21 21:55 Active Saline Lock Insert [OM.PC] Stat Oth 01/27/21 20:04 Ordered Resuscitation Status Routine Resus Stat 01/27/21 22:49 Ordered Medication Orders Hydrocodone Bitart/Acetaminophen (Acetaminophen/Hydrocodone 325-5 Mg Tab) 1 tab PO Q4H PRN PRN Reason: Pain (moderate 4-6) Albuterol (Albuterol 0.083% 2.5 Mg/3 Ml Neb Soln) 2.5 mg NEB Q2H PRN PRN Reason: Shortness Of Breath/wheezing Albuterol/Ipratropium (Albuterol/Ipratropium 3.0-0.5 Mg/3 Ml Neb Soln) 3 ml NEB Q4HRRT [facility] Last Admin: 01/28/21 10:23 Dose: 3 ml Documented by: Admin: 01/28/21 06:22 Dose: 3 ml Documented by: Admin: 01/28/21 01:19 Dose: 3 ml Documented by: SRAVANTHI Amlodipine Besylate (Amlodipine 5 Mg Tab) 10 mg PO DAILY [facility] Last Admin: 01/28/21 09:30 Dose: 10 mg Documented by: BRYANT Baricitinib (Baricitinib 2 Mg Tab) 4 mg PO DAILY [facility] Stop: 02/10/21 23:16 Last Admin: 01/28/21 10:17 Dose: 4 mg Documented by: Admin: 01/28/21 01:18 Dose: 4 mg Documented by: SRAVANTHI Dexamethasone (Dexamethasone 4 Mg Tab) 4 mg PO DAILY [facility] Last Admin: 01/28/21 10:20 Dose: 4 mg Documented by: BRYANT Sodium Chloride (Normal Saline) 1,000 mls @ 125 mls/hr IV ASDIRECTED [facility] Last Admin: 01/28/21 04:58 Dose: 125 mls/hr Documented by: Infusion: 01/28/21 04:42 Dose: 125 mls/hr Documented by: Admin: 01/27/21 20:42 Dose: 125 mls/hr Documented by: MAYCOL Remdesivir 100 mg/ Sodium (Chloride) 100 mls @ 100 mls/hr IV Q24H [facility] Stop: 01/31/21 21:59 Lisinopril (Lisinopril 10 Mg Tab) 30 mg PO DAILY [facility] Last Admin: 01/28/21 10:19 Dose: 30 mg Documented by: BRYANT Rivaroxaban (Rivaroxaban 10 Mg Tab) 20 mg PO BEDTIME [facility] Last Admin: 01/28/21 01:18 Dose: 20 mg Documented by: SRAVANTHI Sertraline HCl (Sertraline 50 Mg Tab) 100 mg PO DAILY [facility] Last Admin: 01/28/21 10:15 Dose: 100 mg Documented by: BRYANT Sodium Chloride (Sodium Chloride 0.9% 10 Ml Syringe) 10 ml FLUSH ASDIRECTED PRN PRN Reason: Keep Vein Open Last Admin: 01/27/21 20:42 Dose: 10 ml Documented by: MAYCOL Sodium Chloride (Sodium Chloride 0.9% 2.5 Ml Syringe) 2.5 ml FLUSH ASDIRECTED PRN PRN Reason: Keep Vein Open Last Admin: 01/27/21 20:42 Dose: 2.5 ml Documented by: MAYCOL Assessment/Plan Comment:: Acute respiratory failure secondary with COVID 19 pneumonia Admit pt to the ICU High flow NC alternating with CPAP Encourage proning Incentive spirometry Covid 19 infection Start pt on decadron, remdesivir and biracitinib [place] not on CPAP at home Will have CPAP Q HS Obesity lifestyle modification Full code VTE prophylaxis lovenox SQ
--- NOTE | 2021-01-28 14:43 | PCM.PN ---
- General Info Date of Service: 01/28/21 - Patient Data Vitals - Most Recent: Last Vital Signs Temp 97.5 F 01/28/21 05:00 Pulse 66 01/27/21 23:00 Resp 21 H 01/28/21 07:00 BP 119/64 01/28/21 10:19 Pulse Ox 88 L 01/28/21 07:00 Weight - Most Recent: 262 lb 11.2 oz I&O - Last 24 Hours: Intake & Output 01/27/21 01/28/21 01/28/21 22:59 06:59 14:59 Intake Total 150 Output Total 400 Balance -250 Lab Results Last 24 Hours: Laboratory Results - last 24 hr 01/27/21 01/27/21 01/27/21 Range/Units 19:40 19:40 19:40 WBC 4.69 (4.0-11.0) K/uL RBC 4.50 (4.30-5.90) M/uL Hgb 14.0 (12.0-16.0) g/dL Hct 41.6 (36.0-46.0) % MCV 92.4 (80.0-98.0) fL MCH 31.1 (27.0-32.0) pg MCHC 33.7 (31.0-37.0) g/dL RDW Std Deviation 47.7 (28.0-62.0) fl RDW Coeff of Ashly 14 (11.0-15.0) % Plt Count 182 (150-400) K/uL MPV 10.30 (7.40-12.00) fL Neut % (Auto) 72.7 (48.0-80.0) % Lymph % (Auto) 17.7 (16.0-40.0) % Leslie % (Auto) 9.2 (0.0-15.0) % Eos % (Auto) 0.0 (0.0-7.0) % Baso % (Auto) 0.4 (0.0-1.5) % Neut # (Auto) 3.4 (1.4-5.7) K/uL Lymph # (Auto) 0.8 (0.6-2.4) K/uL Leslie # (Auto) 0.4 (0.0-0.8) K/uL Eos # (Auto) 0.0 (0.0-0.7) K/uL Baso # (Auto) 0.0 (0.0-0.1) K/uL Nucleated RBC % 0.0 /100WBC Nucleated RBCs # 0 K/uL INR 1.02 APTT 34.8 H (18.6-31.3) SEC D-Dimer, Quantitative 1.01 H (0.0-0.50) mg/L FEU Sodium 133 L (136-145) mmol/L Potassium 4.0 (3.5-5.1) mmol/L Chloride 99 (98-107) mmol/L Carbon Dioxide 24.7 (21.0-32.0) mmol/L BUN 12 (7.0-18.0) mg/dL Creatinine 1.0 (0.6-1.0) mg/dL Est Cr Clr Drug Dosing TNP Estimated GFR (MDRD) 56.4 ml/min Glucose 120 H (74-106) mg/dL Calcium 8.0 L (8.5-10.1) mg/dL Total Bilirubin 0.6 (0.2-1.0) mg/dL Direct Bilirubin (0.0-0.5) mg/dL AST 49 H (15-37) IU/L ALT 42 (14-63) IU/L Alkaline Phosphatase 45 L (46-116) U/L Troponin I < 0.050 (0.000-0.056) ng/mL C-Reactive Protein (0.00-0.90) mg/dL B-Natriuretic Peptide (<100) PG/ML Total Protein 6.9 (6.4-8.2) g/dL Albumin 2.9 L (3.4-5.0) g/dL Globulin 4.0 (2.6-4.0) g/dL Albumin/Globulin Ratio 0.7 L (0.9-1.6) SARS-CoV-2 RNA (JOANN) (NEGATIVE) 01/27/21 01/27/21 01/27/21 Range/Units 19:40 19:40 22:00 WBC (4.0-11.0) K/uL RBC (4.30-5.90) M/uL Hgb (12.0-16.0) g/dL Hct (36.0-46.0) % MCV (80.0-98.0) fL MCH (27.0-32.0) pg MCHC (31.0-37.0) g/dL RDW Std Deviation (28.0-62.0) fl RDW Coeff of Ashly (11.0-15.0) % Plt Count (150-400) K/uL MPV (7.40-12.00) fL Neut % (Auto) (48.0-80.0) % Lymph % (Auto) (16.0-40.0) % Leslie % (Auto) (0.0-15.0) % Eos % (Auto) (0.0-7.0) % Baso % (Auto) (0.0-1.5) % Neut # (Auto) (1.4-5.7) K/uL Lymph # (Auto) (0.6-2.4) K/uL Leslie # (Auto) (0.0-0.8) K/uL Eos # (Auto) (0.0-0.7) K/uL Baso # (Auto) (0.0-0.1) K/uL Nucleated RBC % /100WBC Nucleated RBCs # K/uL INR APTT (18.6-31.3) SEC D-Dimer, Quantitative (0.0-0.50) mg/L FEU Sodium (136-145) mmol/L Potassium (3.5-5.1) mmol/L Chloride (98-107) mmol/L Carbon Dioxide (21.0-32.0) mmol/L BUN (7.0-18.0) mg/dL Creatinine (0.6-1.0) mg/dL Est Cr Clr Drug Dosing Estimated GFR (MDRD) ml/min Glucose (74-106) mg/dL Calcium (8.5-10.1) mg/dL Total Bilirubin (0.2-1.0) mg/dL Direct Bilirubin 0.20 (0.0-0.5) mg/dL AST (15-37) IU/L ALT (14-63) IU/L Alkaline Phosphatase (46-116) U/L Troponin I (0.000-0.056) ng/mL C-Reactive Protein (0.00-0.90) mg/dL B-Natriuretic Peptide 48 (<100) PG/ML Total Protein (6.4-8.2) g/dL Albumin (3.4-5.0) g/dL Globulin (2.6-4.0) g/dL Albumin/Globulin Ratio (0.9-1.6) SARS-CoV-2 RNA (JOANN) POSITIVE H (NEGATIVE) 01/28/21 01/28/21 01/28/21 Range/Units 06:15 06:15 14:03 WBC 4.02 (4.0-11.0) K/uL RBC 4.27 L (4.30-5.90) M/uL Hgb 13.4 (12.0-16.0) g/dL Hct 40.1 (36.0-46.0) % MCV 93.9 (80.0-98.0) fL MCH 31.4 (27.0-32.0) pg MCHC 33.4 (31.0-37.0) g/dL RDW Std Deviation 49.6 (28.0-62.0) fl RDW Coeff of Ashly 15 (11.0-15.0) % Plt Count 186 (150-400) K/uL MPV 10.30 (7.40-12.00) fL Neut % (Auto) 58.5 (48.0-80.0) % Lymph % (Auto) 33.3 (16.0-40.0) % Leslie % (Auto) 8.0 (0.0-15.0) % Eos % (Auto) 0.0 (0.0-7.0) % Baso % (Auto) 0.2 (0.0-1.5) % Neut # (Auto) 2.4 (1.4-5.7) K/uL Lymph # (Auto) 1.3 (0.6-2.4) K/uL Leslie # (Auto) 0.3 (0.0-0.8) K/uL Eos # (Auto) 0.0 (0.0-0.7) K/uL Baso # (Auto) 0.0 (0.0-0.1) K/uL Nucleated RBC % 1.1 /100WBC Nucleated RBCs # 0 K/uL INR APTT (18.6-31.3) SEC D-Dimer, Quantitative (0.0-0.50) mg/L FEU Sodium 139 (136-145) mmol/L Potassium 4.0 (3.5-5.1) mmol/L Chloride 104 (98-107) mmol/L Carbon Dioxide 26.3 (21.0-32.0) mmol/L BUN 12 (7.0-18.0) mg/dL Creatinine 0.9 (0.6-1.0) mg/dL Est Cr Clr Drug Dosing 61.45 Estimated GFR (MDRD) > 60.0 ml/min Glucose 90 (74-106) mg/dL Calcium 7.8 L (8.5-10.1) mg/dL Total Bilirubin (0.2-1.0) mg/dL Direct Bilirubin (0.0-0.5) mg/dL AST (15-37) IU/L ALT (14-63) IU/L Alkaline Phosphatase (46-116) U/L Troponin I (0.000-0.056) ng/mL C-Reactive Protein 6.00 H (0.00-0.90) mg/dL B-Natriuretic Peptide (<100) PG/ML Total Protein (6.4-8.2) g/dL Albumin (3.4-5.0) g/dL Globulin (2.6-4.0) g/dL Albumin/Globulin Ratio (0.9-1.6) SARS-CoV-2 RNA (JOANN) (NEGATIVE) 01/28/21 Range/Units 14:03 WBC (4.0-11.0) K/uL RBC (4.30-5.90) M/uL Hgb (12.0-16.0) g/dL Hct (36.0-46.0) % MCV (80.0-98.0) fL MCH (27.0-32.0) pg MCHC (31.0-37.0) g/dL RDW Std Deviation (28.0-62.0) fl RDW Coeff of Ashly (11.0-15.0) % Plt Count (150-400) K/uL MPV (7.40-12.00) fL Neut % (Auto) (48.0-80.0) % Lymph % (Auto) (16.0-40.0) % Leslie % (Auto) (0.0-15.0) % Eos % (Auto) (0.0-7.0) % Baso % (Auto) (0.0-1.5) % Neut # (Auto) (1.4-5.7) K/uL Lymph # (Auto) (0.6-2.4) K/uL Leslie # (Auto) (0.0-0.8) K/uL Eos # (Auto) (0.0-0.7) K/uL Baso # (Auto) (0.0-0.1) K/uL Nucleated RBC % /100WBC Nucleated RBCs # K/uL INR APTT (18.6-31.3) SEC D-Dimer, Quantitative 1.01 H (0.0-0.50) mg/L FEU Sodium (136-145) mmol/L Potassium (3.5-5.1) mmol/L Chloride (98-107) mmol/L Carbon Dioxide (21.0-32.0) mmol/L BUN (7.0-18.0) mg/dL Creatinine (0.6-1.0) mg/dL Est Cr Clr Drug Dosing Estimated GFR (MDRD) ml/min Glucose (74-106) mg/dL Calcium (8.5-10.1) mg/dL Total Bilirubin (0.2-1.0) mg/dL Direct Bilirubin (0.0-0.5) mg/dL AST (15-37) IU/L ALT (14-63) IU/L Alkaline Phosphatase (46-116) U/L Troponin I (0.000-0.056) ng/mL C-Reactive Protein (0.00-0.90) mg/dL B-Natriuretic Peptide (<100) PG/ML Total Protein (6.4-8.2) g/dL Albumin (3.4-5.0) g/dL Globulin (2.6-4.0) g/dL Albumin/Globulin Ratio (0.9-1.6) SARS-CoV-2 RNA (JOANN) (NEGATIVE) Rod Results Last 24 Hours: Microbiology 01/27/21 22:00 Influenza Type A Antigen Screen - Final Nasopharyngeal Swab NEGATIVE INFLUENZA A VIRUS AG REFERENCE RANGE: NEGATIVE Influenza Type B Antigen Screen - Final NEGATIVE INFLUENZA B VIRUS AG REFERENCE RANGE: NEGATIVE Med Orders - Current: Current Medications Hydrocodone Bitart/Acetaminophen (Acetaminophen/Hydrocodone 325-5 Mg Tab) 1 tab PO Q4H PRN PRN Reason: Pain (moderate 4-6) Albuterol (Albuterol 0.083% 2.5 Mg/3 Ml Neb Soln) 2.5 mg NEB Q2H PRN PRN Reason: Shortness Of Breath/wheezing Albuterol/Ipratropium (Albuterol/Ipratropium 3.0-0.5 Mg/3 Ml Neb Soln) 3 ml NEB Q4HRRT [facility] Last Admin: 01/28/21 10:23 Dose: 3 ml Documented by: Amlodipine Besylate (Amlodipine 5 Mg Tab) 10 mg PO DAILY [facility] Last Admin: 01/28/21 09:30 Dose: 10 mg Documented by: Baricitinib (Baricitinib 2 Mg Tab) 4 mg PO DAILY [facility] Stop: 02/10/21 23:16 Last Admin: 01/28/21 10:17 Dose: 4 mg Documented by: Dexamethasone (Dexamethasone 4 Mg Tab) 4 mg PO DAILY [facility] Last Admin: 01/28/21 10:20 Dose: 4 mg Documented by: Sodium Chloride (Normal Saline) 1,000 mls @ 125 mls/hr IV ASDIRECTED [facility] Last Admin: 01/28/21 04:58 Dose: 125 mls/hr Documented by: Remdesivir 100 mg/ Sodium (Chloride) 100 mls @ 100 mls/hr IV Q24H [facility] Stop: 01/31/21 21:59 Lisinopril (Lisinopril 10 Mg Tab) 30 mg PO DAILY [facility] Last Admin: 01/28/21 10:19 Dose: 30 mg Documented by: Rivaroxaban (Rivaroxaban 10 Mg Tab) 20 mg PO BEDTIME [facility] Last Admin: 01/28/21 01:18 Dose: 20 mg Documented by: Sertraline HCl (Sertraline 50 Mg Tab) 100 mg PO DAILY [facility] Last Admin: 01/28/21 10:15 Dose: 100 mg Documented by: Sodium Chloride (Sodium Chloride 0.9% 10 Ml Syringe) 10 ml FLUSH ASDIRECTED PRN PRN Reason: Keep Vein Open Last Admin: 01/27/21 20:42 Dose: 10 ml Documented by: Sodium Chloride (Sodium Chloride 0.9% 2.5 Ml Syringe) 2.5 ml FLUSH ASDIRECTED PRN PRN Reason: Keep Vein Open Last Admin: 01/27/21 20:42 Dose: 2.5 ml Documented by: Discontinued Medications Acetaminophen (Acetaminophen 325 Mg Tab) 650 mg PO NOW ONE Stop: 01/27/21 20:20 Last Admin: 01/27/21 20:42 Dose: 650 mg Documented by: Acetaminophen (Acetaminophen 325 Mg Tab) Confirm Administered Dose 650 mg .ROUTE .STK-MED ONE Stop: 01/27/21 20:20 Last Admin: 01/27/21 20:30 Dose: Not Given Documented by: Albuterol (Albuterol 8 Gm Inhaler) 8 gm INH ONETIME STA Stop: 01/27/21 20:06 Last Admin: 01/27/21 20:41 Dose: 8 gm Documented by: Benzonatate (Benzonatate 100 Mg Cap) 200 mg PO ONETIME ONE Stop: 01/27/21 20:07 Last Admin: 01/27/21 20:43 Dose: 200 mg Documented by: Enoxaparin Sodium (Enoxaparin 40 Mg/0.4 Ml Syringe) 40 mg SUBCUT Q24H [facility] Remdesivir 200 mg/ Sodium (Chloride) 250 mls @ 250 mls/hr IV ONETIME ONE Stop: 01/27/21 20:52 Last Admin: 01/27/21 21:40 Dose: 250 mls/hr Documented by: Ceftriaxone Sodium/Dextrose 1 (gm/ Premix) 50 mls @ 100 mls/hr IV ONETIME ONE Stop: 01/27/21 22:00 Last Admin: 01/27/21 22:26 Dose: Not Given Documented by: Influenza Virus Vaccine (Pharmacy To Dose - Influenza Vaccine) 1 each IM ONETIME ONE Stop: 01/28/21 00:13 Influenza Virus Vaccine (Flu Vacc [id number](6mos Up)/Pf 60 Mcg/0.5 Ml Syringe) 60 mcg IM .ONCE ONE Stop: 01/28/21 09:01 Last Admin: 01/28/21 10:22 Dose: Not Given Documented by: Iopamidol (Iopamidol 755 Mg/Ml 500 Ml Multipack Bottle) 75 ml IVPUSH ONETIME STA Stop: 01/27/21 21:59 Last Admin: 01/27/21 21:59 Dose: 75 ml Documented by: Iopamidol (Iopamidol 755 Mg/Ml 500 Ml Multipack Bottle) 75 ml IVPUSH ONETIME STA Stop: 01/27/21 21:59 Last Admin: 01/27/21 22:00 Dose: 75 ml Documented by: Ondansetron HCl (Ondansetron 4 Mg/2 Ml Sdv) 4 mg IVPUSH ONETIME ONE Stop: 01/27/21 20:20 Last Admin: 01/27/21 20:43 Dose: 4 mg Documented by: Ondansetron HCl (Ondansetron 4 Mg/2 Ml Sdv) Confirm Administered Dose 4 mg .SHONDA NINASTK-MED ONE Stop: 01/27/21 20:20 Last Admin: 01/27/21 20:31 Dose: Not Given Documented by: Rivaroxaban (Rivaroxaban 15 Mg Tab) 15 mg PO BID [facility] Last Admin: 01/28/21 01:04 Dose: Not Given Documented by: Rivaroxaban (Rivaroxaban 15 Mg Tab) 15 mg PO BIDMEALS [facility] Last Admin: 01/28/21 01:03 Dose: Not Given Documented by: Rivaroxaban (Rivaroxaban 10 Mg Tab) 20 mg PO BEDTIME [facility] - Exam Physical Findings Comments:: General: Obese female. In no respiratory distress. CVS: S1S2 appreciated. RRR lungs: Diminished breath sounds. No wheezes. pa: soft, non tender. bowel sounds present ext: no clubbing, cyanosis or edema neuro: moves all extremities. No focal deficits. psych: stable mood and affect - Patient Data Lab Results Last 24 hrs: Laboratory Results - last 24 hr 01/27/21 01/27/21 01/27/21 Range/Units 19:40 19:40 19:40 WBC 4.69 (4.0-11.0) K/uL RBC 4.50 (4.30-5.90) M/uL Hgb 14.0 (12.0-16.0) g/dL Hct 41.6 (36.0-46.0) % MCV 92.4 (80.0-98.0) fL MCH 31.1 (27.0-32.0) pg MCHC 33.7 (31.0-37.0) g/dL RDW Std Deviation 47.7 (28.0-62.0) fl RDW Coeff of Ashly 14 (11.0-15.0) % Plt Count 182 (150-400) K/uL MPV 10.30 (7.40-12.00) fL Neut % (Auto) 72.7 (48.0-80.0) % Lymph % (Auto) 17.7 (16.0-40.0) % Leslie % (Auto) 9.2 (0.0-15.0) % Eos % (Auto) 0.0 (0.0-7.0) % Baso % (Auto) 0.4 (0.0-1.5) % Neut # (Auto) 3.4 (1.4-5.7) K/uL Lymph # (Auto) 0.8 (0.6-2.4) K/uL Leslie # (Auto) 0.4 (0.0-0.8) K/uL Eos # (Auto) 0.0 (0.0-0.7) K/uL Baso # (Auto) 0.0 (0.0-0.1) K/uL Nucleated RBC % 0.0 /100WBC Nucleated RBCs # 0 K/uL INR 1.02 APTT 34.8 H (18.6-31.3) SEC D-Dimer, Quantitative 1.01 H (0.0-0.50) mg/L FEU Sodium 133 L (136-145) mmol/L Potassium 4.0 (3.5-5.1) mmol/L Chloride 99 (98-107) mmol/L Carbon Dioxide 24.7 (21.0-32.0) mmol/L BUN 12 (7.0-18.0) mg/dL Creatinine 1.0 (0.6-1.0) mg/dL Est Cr Clr Drug Dosing TNP Estimated GFR (MDRD) 56.4 ml/min Glucose 120 H (74-106) mg/dL Calcium 8.0 L (8.5-10.1) mg/dL Total Bilirubin 0.6 (0.2-1.0) mg/dL Direct Bilirubin (0.0-0.5) mg/dL AST 49 H (15-37) IU/L ALT 42 (14-63) IU/L Alkaline Phosphatase 45 L (46-116) U/L Troponin I < 0.050 (0.000-0.056) ng/mL C-Reactive Protein (0.00-0.90) mg/dL B-Natriuretic Peptide (<100) PG/ML Total Protein 6.9 (6.4-8.2) g/dL Albumin 2.9 L (3.4-5.0) g/dL Globulin 4.0 (2.6-4.0) g/dL Albumin/Globulin Ratio 0.7 L (0.9-1.6) SARS-CoV-2 RNA (JOANN) (NEGATIVE) 01/27/21 01/27/21 01/27/21 Range/Units 19:40 19:40 22:00 WBC (4.0-11.0) K/uL RBC (4.30-5.90) M/uL Hgb (12.0-16.0) g/dL Hct (36.0-46.0) % MCV (80.0-98.0) fL MCH (27.0-32.0) pg MCHC (31.0-37.0) g/dL RDW Std Deviation (28.0-62.0) fl RDW Coeff of Ashly (11.0-15.0) % Plt Count (150-400) K/uL MPV (7.40-12.00) fL Neut % (Auto) (48.0-80.0) % Lymph % (Auto) (16.0-40.0) % Leslie % (Auto) (0.0-15.0) % Eos % (Auto) (0.0-7.0) % Baso % (Auto) (0.0-1.5) % Neut # (Auto) (1.4-5.7) K/uL Lymph # (Auto) (0.6-2.4) K/uL Leslie # (Auto) (0.0-0.8) K/uL Eos # (Auto) (0.0-0.7) K/uL Baso # (Auto) (0.0-0.1) K/uL Nucleated RBC % /100WBC Nucleated RBCs # K/uL INR APTT (18.6-31.3) SEC D-Dimer, Quantitative (0.0-0.50) mg/L FEU Sodium (136-145) mmol/L Potassium (3.5-5.1) mmol/L Chloride (98-107) mmol/L Carbon Dioxide (21.0-32.0) mmol/L BUN (7.0-18.0) mg/dL Creatinine (0.6-1.0) mg/dL Est Cr Clr Drug Dosing Estimated GFR (MDRD) ml/min Glucose (74-106) mg/dL Calcium (8.5-10.1) mg/dL Total Bilirubin (0.2-1.0) mg/dL Direct Bilirubin 0.20 (0.0-0.5) mg/dL AST (15-37) IU/L ALT (14-63) IU/L Alkaline Phosphatase (46-116) U/L Troponin I (0.000-0.056) ng/mL C-Reactive Protein (0.00-0.90) mg/dL B-Natriuretic Peptide 48 (<100) PG/ML Total Protein (6.4-8.2) g/dL Albumin (3.4-5.0) g/dL Globulin (2.6-4.0) g/dL Albumin/Globulin Ratio (0.9-1.6) SARS-CoV-2 RNA (JOANN) POSITIVE H (NEGATIVE) 01/28/21 01/28/21 01/28/21 Range/Units 06:15 06:15 14:03 WBC 4.02 (4.0-11.0) K/uL RBC 4.27 L (4.30-5.90) M/uL Hgb 13.4 (12.0-16.0) g/dL Hct 40.1 (36.0-46.0) % MCV 93.9 (80.0-98.0) fL MCH 31.4 (27.0-32.0) pg MCHC 33.4 (31.0-37.0) g/dL RDW Std Deviation 49.6 (28.0-62.0) fl RDW Coeff of Ashly 15 (11.0-15.0) % Plt Count 186 (150-400) K/uL MPV 10.30 (7.40-12.00) fL Neut % (Auto) 58.5 (48.0-80.0) % Lymph % (Auto) 33.3 (16.0-40.0) % Leslie % (Auto) 8.0 (0.0-15.0) % Eos % (Auto) 0.0 (0.0-7.0) % Baso % (Auto) 0.2 (0.0-1.5) % Neut # (Auto) 2.4 (1.4-5.7) K/uL Lymph # (Auto) 1.3 (0.6-2.4) K/uL Leslie # (Auto) 0.3 (0.0-0.8) K/uL Eos # (Auto) 0.0 (0.0-0.7) K/uL Baso # (Auto) 0.0 (0.0-0.1) K/uL Nucleated RBC % 1.1 /100WBC Nucleated RBCs # 0 K/uL INR APTT (18.6-31.3) SEC D-Dimer, Quantitative (0.0-0.50) mg/L FEU Sodium 139 (136-145) mmol/L Potassium 4.0 (3.5-5.1) mmol/L Chloride 104 (98-107) mmol/L Carbon Dioxide 26.3 (21.0-32.0) mmol/L BUN 12 (7.0-18.0) mg/dL Creatinine 0.9 (0.6-1.0) mg/dL Est Cr Clr Drug Dosing 61.45 Estimated GFR (MDRD) > 60.0 ml/min Glucose 90 (74-106) mg/dL Calcium 7.8 L (8.5-10.1) mg/dL Total Bilirubin (0.2-1.0) mg/dL Direct Bilirubin (0.0-0.5) mg/dL AST (15-37) IU/L ALT (14-63) IU/L Alkaline Phosphatase (46-116) U/L Troponin I (0.000-0.056) ng/mL C-Reactive Protein 6.00 H (0.00-0.90) mg/dL B-Natriuretic Peptide (<100) PG/ML Total Protein (6.4-8.2) g/dL Albumin (3.4-5.0) g/dL Globulin (2.6-4.0) g/dL Albumin/Globulin Ratio (0.9-1.6) SARS-CoV-2 RNA (JOANN) (NEGATIVE) 01/28/21 Range/Units 14:03 WBC (4.0-11.0) K/uL RBC (4.30-5.90) M/uL Hgb (12.0-16.0) g/dL Hct (36.0-46.0) % MCV (80.0-98.0) fL MCH (27.0-32.0) pg MCHC (31.0-37.0) g/dL RDW Std Deviation (28.0-62.0) fl RDW Coeff of Ashly (11.0-15.0) % Plt Count (150-400) K/uL MPV (7.40-12.00) fL Neut % (Auto) (48.0-80.0) % Lymph % (Auto) (16.0-40.0) % Leslie % (Auto) (0.0-15.0) % Eos % (Auto) (0.0-7.0) % Baso % (Auto) (0.0-1.5) % Neut # (Auto) (1.4-5.7) K/uL Lymph # (Auto) (0.6-2.4) K/uL Leslie # (Auto) (0.0-0.8) K/uL Eos # (Auto) (0.0-0.7) K/uL Baso # (Auto) (0.0-0.1) K/uL Nucleated RBC % /100WBC Nucleated RBCs # K/uL INR APTT (18.6-31.3) SEC D-Dimer, Quantitative 1.01 H (0.0-0.50) mg/L FEU Sodium (136-145) mmol/L Potassium (3.5-5.1) mmol/L Chloride (98-107) mmol/L Carbon Dioxide (21.0-32.0) mmol/L BUN (7.0-18.0) mg/dL Creatinine (0.6-1.0) mg/dL Est Cr Clr Drug Dosing Estimated GFR (MDRD) ml/min Glucose (74-106) mg/dL Calcium (8.5-10.1) mg/dL Total Bilirubin (0.2-1.0) mg/dL Direct Bilirubin (0.0-0.5) mg/dL AST (15-37) IU/L ALT (14-63) IU/L Alkaline Phosphatase (46-116) U/L Troponin I (0.000-0.056) ng/mL C-Reactive Protein (0.00-0.90) mg/dL B-Natriuretic Peptide (<100) PG/ML Total Protein (6.4-8.2) g/dL Albumin (3.4-5.0) g/dL Globulin (2.6-4.0) g/dL Albumin/Globulin Ratio (0.9-1.6) SARS-CoV-2 RNA (JOANN) (NEGATIVE) Result Diagrams: 01/28/21 06:15 01/28/21 06:15 Rod Results Last 24 hrs: Microbiology 01/27/21 22:00 Influenza Type A Antigen Screen - Final Nasopharyngeal Swab NEGATIVE INFLUENZA A VIRUS AG REFERENCE RANGE: NEGATIVE Influenza Type B Antigen Screen - Final NEGATIVE INFLUENZA B VIRUS AG REFERENCE RANGE: NEGATIVE Sepsis Event Note - Evaluation Sepsis Screening Result: Possible Sepsis Risk - Focused Exam Vital Signs: Vital Signs Temp Resp BP BP Pulse Ox 01/28/21 10:19 119/64 01/28/21 09:30 119/64 01/28/21 07:00 21 H 113/62 88 L 01/28/21 06:00 28 H 111/67 88 L 01/28/21 05:00 97.5 F 25 H 117/61 87 L 01/28/21 04:00 29 H 106/62 91 L 01/28/21 03:00 27 H 108/60 88 L - Problem List & Annotations (1) Pneumonia due to COVID-19 virus SNOMED Code(s): 833490345651725488 Code(s): U07.1 - COVID-19; J12.82 - PNEUMONIA DUE TO CORONAVIRUS DISEASE 2019 Status: Acute Current Visit: Yes (2) Acute respiratory failure due to COVID-19 SNOMED Code(s): 385944838 Code(s): U07.1 - COVID-19; J96.00 - ACUTE RESPIRATORY FAILURE, UNSP W HYPOXIA OR HYPERCAPNIA Status: Acute Current Visit: Yes - Problem List Review Problem List Initiated/Reviewed/Updated: Yes - My Orders Last 24 Hours: My Active Orders 01/27/21 22:49 Oxygen Therapy [RC] PRN Up ad Hansa [RC] ASDIRECTED VTE/DVT Education [RC] PER UNIT ROUTINE Vital Signs [RC] Q1H Acetaminophen/HYDROcodone [Loraine 325-5 MG] 1 tab PO Q4H PRN Albuterol [Proventil Neb Soln] 2.5 mg NEB Q2H PRN Resuscitation Status Routine 01/27/21 22:50 Pulse Oximetry [RC] CONTINUOUS 01/27/21 22:54 RT Aerosol Therapy [RC] ASDIRECTED 01/27/21 23:00 RT Incentive Spirometry [RC] Q1HWA 01/27/21 23:15 Baricitinib [Olumiant] 4 mg PO DAILY 01/28/21 00:12 Vaccine to be Administered/Admin Charge [RC] ASDIRECTED 01/28/21 01:07 Rivaroxaban [Xarelto] 20 mg PO BEDTIME 01/28/21 02:00 Albuterol/Ipratropium [DuoNeb 3.0-0.5 MG/3 ML] 3 ml NEB Q4HRRT 01/28/21 Breakfast Regular Diet [DIET] 01/28/21 09:00 Sertraline [Zoloft] 100 mg PO DAILY amLODIPine [Norvasc] 10 mg PO DAILY dexAMETHasone 4 mg PO DAILY lisinopriL [Prinivil] 30 mg PO DAILY 01/28/21 21:00 Remdesivir 100 mg Sodium Chloride 0.9% [Normal Saline AdvBag] 100 ml IV Q24H - Plan Plan:: Acute respiratory failure secondary with COVID 19 pneumonia High flow NC alternating with CPAP Encourage proning Incentive spirometry Covid 19 infection Continue decadron, remdesivir and biracitinib SHELTON not on CPAP at home CPAP Q HS Obesity lifestyle modification Full code VTE prophylaxis lovenox SQ
[2021-01-28] MEDS: REMDESIVIR 100 MG in Sodium Chloride 0.9% 100 ML IV SCH (20:02)
[2021-01-28] MEDS ORDERED: Rivaroxaban 10 MG Tab PO SCH (21:00)
[2021-01-28] MEDS ORDERED: LORazepam 2 MG/ML SDV IVPUSH PRN (21:27)
--- NOTE | 2021-01-28 21:49 | PN ---
[facility] Physician - Brief Progress [id number]/25/2021 21:44[facility] [place] - JOSE RAUL (KRISTIE) - JOSE RAUL ANGELIQUE ARELLANO, Covid +Date of Service 01/28/2021 21:44HPI/ Events of Note 60 y old woman with COVID Moved to ICU for hypoxiaNov 14 was tested positive and getti ng worse since that timeMoved to eICU monitored bed just now and in ICU since yesterdayOn video resti ng onCPAP 8 with good VtCT for PE nondiagnosticBlat consilidation senPt on remdesivir, dexamethasone and baricitinibEKG from yesterday per RN QTc 442 sinus- not visible to me in the EMR- Monitor Vt - a void excess -Watch hypoxia-On anticoagulation- notes indicated hemotysis- monitor-Pt able to prone pe r RN -Lorazepam 1 mg prn IV ordered for anxiety related to NIV-Interventions Major-Hypoxemia - evalua tion and management, Infection - evaluation and management, Respiratory failure - evaluation and rosa gement
[2021-01-29] MEDS: Albuterol/Ipratropium 3.0-0.5 MG/3 ML Neb Soln NEB SCH ×6 (01:32→21:54)
[2021-01-29] MEDS: Sodium Chloride 0.9% 1,000 ML IV SCH ×2 (01:33→12:25)
[2021-01-29] MEDS: Dexamethasone 4 MG Tab PO SCH (08:49)
[2021-01-29] MEDS: Sertraline 50 MG Tab PO SCH (08:50)
[2021-01-29] MEDS: Lisinopril 10 MG Tab PO SCH (08:50)
[2021-01-29] MEDS: amLODIPine 5 MG Tab PO SCH (08:51)
--- NOTE | 2021-01-29 15:25 | PCM.PN ---
- General Info Date of Service: 01/29/21 Subjective Update: Pt feels better today. She does not feel SOB like she did yesterday. - Patient Data Vitals - Most Recent: Last Vital Signs Temp 98 F 01/29/21 13:00 Pulse 66 01/27/21 23:00 Resp 22 H 01/29/21 13:00 BP 103/76 01/29/21 13:00 Pulse Ox 91 L 01/29/21 13:00 Weight - Most Recent: 275 lb 2.19 oz I&O - Last 24 Hours: Intake & Output 01/29/21 01/29/21 01/29/21 06:59 14:59 22:59 Intake Total 500 Output Total 1200 Balance -700 Med Orders - Current: Current Medications Hydrocodone Bitart/Acetaminophen (Acetaminophen/Hydrocodone 325-5 Mg Tab) 1 tab PO Q4H PRN PRN Reason: Pain (moderate 4-6) Albuterol (Albuterol 0.083% 2.5 Mg/3 Ml Neb Soln) 2.5 mg NEB Q2H PRN PRN Reason: Shortness Of Breath/wheezing Albuterol/Ipratropium (Albuterol/Ipratropium 3.0-0.5 Mg/3 Ml Neb Soln) 3 ml NEB Q4HRRT [facility] Last Admin: 01/29/21 13:48 Dose: 3 ml Documented by: Amlodipine Besylate (Amlodipine 5 Mg Tab) 10 mg PO DAILY [facility] Last Admin: 01/29/21 08:51 Dose: 10 mg Documented by: Baricitinib (Baricitinib 2 Mg Tab) 4 mg PO DAILY [facility] Stop: 02/10/21 23:16 Last Admin: 01/29/21 08:50 Dose: 4 mg Documented by: Dexamethasone (Dexamethasone 4 Mg Tab) 6 mg PO DAILY [facility] Last Admin: 01/29/21 08:49 Dose: 6 mg Documented by: Sodium Chloride (Normal Saline) 1,000 mls @ 125 mls/hr IV ASDIRECTED [facility] Last Admin: 01/29/21 12:25 Dose: 125 mls/hr Documented by: Remdesivir 100 mg/ Sodium (Chloride) 100 mls @ 100 mls/hr IV Q24H [facility] Stop: 01/31/21 21:59 Last Admin: 01/28/21 20:02 Dose: 100 mls/hr Documented by: Lisinopril (Lisinopril 10 Mg Tab) 30 mg PO DAILY [facility] Last Admin: 01/29/21 08:50 Dose: 30 mg Documented by: Rivaroxaban (Rivaroxaban 10 Mg Tab) 20 mg PO BEDTIME [facility] Last Admin: 01/28/21 20:01 Dose: 20 mg Documented by: Sertraline HCl (Sertraline 50 Mg Tab) 100 mg PO DAILY [facility] Last Admin: 01/29/21 08:50 Dose: 100 mg Documented by: Sodium Chloride (Sodium Chloride 0.9% 10 Ml Syringe) 10 ml FLUSH ASDIRECTED PRN PRN Reason: Keep Vein Open Last Admin: 01/27/21 20:42 Dose: 10 ml Documented by: Sodium Chloride (Sodium Chloride 0.9% 2.5 Ml Syringe) 2.5 ml FLUSH ASDIRECTED PRN PRN Reason: Keep Vein Open Last Admin: 01/27/21 20:42 Dose: 2.5 ml Documented by: Discontinued Medications Acetaminophen (Acetaminophen 325 Mg Tab) 650 mg PO NOW ONE Stop: 01/27/21 20:20 Last Admin: 01/27/21 20:42 Dose: 650 mg Documented by: Acetaminophen (Acetaminophen 325 Mg Tab) Confirm Administered Dose 650 mg .ROUTE .STK-MED ONE Stop: 01/27/21 20:20 Last Admin: 01/27/21 20:30 Dose: Not Given Documented by: Albuterol (Albuterol 8 Gm Inhaler) 8 gm INH ONETIME STA Stop: 01/27/21 20:06 Last Admin: 01/27/21 20:41 Dose: 8 gm Documented by: Benzonatate (Benzonatate 100 Mg Cap) 200 mg PO ONETIME ONE Stop: 01/27/21 20:07 Last Admin: 01/27/21 20:43 Dose: 200 mg Documented by: Dexamethasone (Dexamethasone 4 Mg Tab) 4 mg PO DAILY [facility] Last Admin: 01/28/21 10:20 Dose: 4 mg Documented by: Enoxaparin Sodium (Enoxaparin 40 Mg/0.4 Ml Syringe) 40 mg SUBCUT Q24H [facility] Remdesivir 200 mg/ Sodium (Chloride) 250 mls @ 250 mls/hr IV ONETIME ONE Stop: 01/27/21 20:52 Last Admin: 01/27/21 21:40 Dose: 250 mls/hr Documented by: Ceftriaxone Sodium/Dextrose 1 (gm/ Premix) 50 mls @ 100 mls/hr IV ONETIME ONE Stop: 01/27/21 22:00 Last Admin: 01/27/21 22:26 Dose: Not Given Documented by: Influenza Virus Vaccine (Pharmacy To Dose - Influenza Vaccine) 1 each IM ONETIME ONE Stop: 01/28/21 00:13 Influenza Virus Vaccine (Flu Vacc Cr4826-53(6mos Up)/Pf 60 Mcg/0.5 Ml Syringe) 60 mcg IM .ONCE ONE Stop: 01/28/21 09:01 Last Admin: 01/28/21 10:22 Dose: Not Given Documented by: Iopamidol (Iopamidol 755 Mg/Ml 500 Ml Multipack Bottle) 75 ml IVPUSH ONETIME STA Stop: 01/27/21 21:59 Last Admin: 01/27/21 21:59 Dose: 75 ml Documented by: Iopamidol (Iopamidol 755 Mg/Ml 500 Ml Multipack Bottle) 75 ml IVPUSH ONETIME STA Stop: 01/27/21 21:59 Last Admin: 01/27/21 22:00 Dose: 75 ml Documented by: Lorazepam (Lorazepam 2 Mg/Ml Sdv) 1 mg IVPUSH Q8H PRN PRN Reason: Anxiety Stop: 01/29/21 08:00 Ondansetron HCl (Ondansetron 4 Mg/2 Ml Sdv) 4 mg IVPUSH ONETIME ONE Stop: 01/27/21 20:20 Last Admin: 01/27/21 20:43 Dose: 4 mg Documented by: Ondansetron HCl (Ondansetron 4 Mg/2 Ml Sdv) Confirm Administered Dose 4 mg .ROUTE .STK-MED ONE Stop: 01/27/21 20:20 Last Admin: 01/27/21 20:31 Dose: Not Given Documented by: Rivaroxaban (Rivaroxaban 15 Mg Tab) 15 mg PO BID [facility] Last Admin: 01/28/21 01:04 Dose: Not Given Documented by: Rivaroxaban (Rivaroxaban 15 Mg Tab) 15 mg PO BIDMEALS [facility] Last Admin: 01/28/21 01:03 Dose: Not Given Documented by: Rivaroxaban (Rivaroxaban 10 Mg Tab) 20 mg PO BEDTIME [facility] - Exam Physical Findings Comments:: General: Obese middle aged female. In no distress. CVS: S1S2 appreciated. RRR. No murmurs, rubs or gallops lungs: clear bilaterally with no rales or wheezes. PA: soft, non tender. Obese, bowel sounds present ext: no clubbing, cyanosis or edema. neuro: no focal deficits. psych: stable mood and affect. - Patient Data Result Diagrams: 01/28/21 06:15 01/28/21 06:15 Sepsis Event Note - Evaluation Sepsis Screening Result: Possible Sepsis Risk - Focused Exam Vital Signs: Vital Signs Temp Resp BP BP Pulse Ox Pulse Ox 01/29/21 13:00 98 F 22 H 103/76 91 L 01/29/21 12:00 98 F 25 H 120/78 92 L 01/29/21 11:00 26 H 117/74 93 L 01/29/21 10:00 27 H 117/74 91 L 01/29/21 09:00 19 120/76 93 L 01/29/21 08:51 110/68 01/29/21 08:50 110/68 01/29/21 08:00 97.9 F 24 H 110/68 86 L 93 L 01/29/21 07:00 97.9 F 29 H 125/73 93 L 01/29/21 06:00 24 H 127/71 90 L 01/29/21 05:00 27 H 132/76 91 L 01/29/21 04:00 97.1 F 29 H 123/72 93 L - Problem List & Annotations (1) Pneumonia due to COVID-19 virus SNOMED Code(s): 996152904599593883 Code(s): U07.1 - COVID-19; J12.82 - PNEUMONIA DUE TO CORONAVIRUS DISEASE 2019 Status: Acute Current Visit: Yes (2) Acute respiratory failure due to COVID-19 SNOMED Code(s): 751066171 Code(s): U07.1 - COVID-19; J96.00 - ACUTE RESPIRATORY FAILURE, UNSP W HYPOXIA OR HYPERCAPNIA Status: Acute Current Visit: Yes - Problem List Review Problem List Initiated/Reviewed/Updated: Yes - My Orders Last 24 Hours: My Active Orders 01/28/21 14:48 RT BiPAP/CPAP [RC] DAILY 01/28/21 14:49 Consult to Respiratory Therapy [Respiratory Care Assess and Treatment] [CONS] Routine 01/28/21 21:00 Remdesivir 100 mg Sodium Chloride 0.9% [Normal Saline AdvBag] 100 ml IV Q24H 01/29/21 09:00 dexAMETHasone 6 mg PO DAILY - Plan Plan:: Acute respiratory failure secondary with COVID 19 pneumonia Continue with high flow NC alternating with CPAP. Continue to wean down oxygen as tolerated. Encourage proning Incentive spirometry Covid 19 infection Continue decadron, remdesivir and biracitinib SHELTON not on CPAP at home CPAP Q HS Obesity lifestyle modification Full code VTE prophylaxis lovenox SQ
--- NOTE | 2021-01-29 15:58 | PN ---
THC Physician - Brief Progress [id number]/26/2021 15:49[facility] [place], [place] - JOSE RAUL (KRISTIE) - JOSE RAUL ANGELIQUE ARELLANOMary Ann, Covid +Date of Service 01/29/2021 15:49HPI/ Events of Note eICU Progress Note60 y old woman with COVID pneumonia, tested positive on 01/27, she w as moved to ICU due to increase O2 requirements, CT chest on 01/27 showed diffuse airspace disease, p oor quality study for PE. She is been treated with remdesivir, dexamethasone and baricitinib. she is on rivaroxaban for anticoagulation.Patient was evaluated via camera, no resp distress noted. Remains on HHFNCPer RN report, patient is stable, tolerating HHFNC during the day and using CPAP at nighteICU Recommendations:Continue covid treatment per hospital guidelinesSelf proning as tolerated.No need fo r DVT prophylaxis as patient is anticoagulatedStart PUD prophylaxis with protonix dailyMantain patien t ghulam negative fluid balanceThank you for allowing us to participate in the care of your patient.Inte rventions Major-Hypoxemia - evaluation and management, Infection - evaluation and managementIntermedi ate-Communication with other healthcare providers and/or family
[2021-01-29] MEDS: REMDESIVIR 100 MG in Sodium Chloride 0.9% 100 ML IV SCH (20:17)
[2021-01-29] MEDS: Rivaroxaban 10 MG Tab PO SCH (20:17)
[2021-01-29] MEDS ORDERED: LORazepam 2 MG/ML SDV IVPUSH ONE (22:22)
[2021-01-30] MEDS: Albuterol/Ipratropium 3.0-0.5 MG/3 ML Neb Soln NEB SCH ×6 (01:50→22:00)
[2021-01-30] MEDS: Sodium Chloride 0.9% 1,000 ML IV SCH (01:51)
[2021-01-30] MEDS: Pantoprazole 40 MG Tab.CR PO SCH (08:04)
[2021-01-30] MEDS: amLODIPine 5 MG Tab PO SCH (08:04)
[2021-01-30] MEDS: Sertraline 50 MG Tab PO SCH (08:05)
[2021-01-30] MEDS: Lisinopril 10 MG Tab PO SCH (08:05)
[2021-01-30] MEDS: Dexamethasone 4 MG Tab PO SCH (08:05)
[2021-01-30] MEDS ORDERED: guaiFENesin/Dextromethorphan 100-10 MG/5 ML Soln 10 ML Cup PO PRN (10:42)
--- NOTE | 2021-01-30 11:55 | PCM.PN ---
- General Info Date of Service: 01/30/21 - Patient Data Vitals - Most Recent: Last Vital Signs Temp 97.9 F 01/30/21 09:00 Pulse 66 01/27/21 23:00 Resp 12 01/30/21 09:00 BP 142/79 H 01/30/21 09:00 Pulse Ox 92 L 01/30/21 09:00 Weight - Most Recent: 273 lb 5.971 oz I&O - Last 24 Hours: Intake & Output 01/29/21 01/30/21 01/30/21 22:59 06:59 14:59 Intake Total 1750 500 Output Total 1000 700 Balance 750 -200 Med Orders - Current: Current Medications Hydrocodone Bitart/Acetaminophen (Acetaminophen/Hydrocodone 325-5 Mg Tab) 1 tab PO Q4H PRN PRN Reason: Pain (moderate 4-6) Albuterol (Albuterol 0.083% 2.5 Mg/3 Ml Neb Soln) 2.5 mg NEB Q2H PRN PRN Reason: Shortness Of Breath/wheezing Albuterol/Ipratropium (Albuterol/Ipratropium 3.0-0.5 Mg/3 Ml Neb Soln) 3 ml NEB Q4HRRT [facility] Last Admin: 01/30/21 10:00 Dose: 3 ml Documented by: Amlodipine Besylate (Amlodipine 5 Mg Tab) 10 mg PO DAILY [facility] Last Admin: 01/30/21 08:04 Dose: 10 mg Documented by: Baricitinib (Baricitinib 2 Mg Tab) 4 mg PO DAILY [facility] Stop: 02/10/21 23:16 Last Admin: 01/30/21 08:05 Dose: 4 mg Documented by: Dexamethasone (Dexamethasone 4 Mg Tab) 6 mg PO DAILY [facility] Last Admin: 01/30/21 08:05 Dose: 6 mg Documented by: Guaifenesin/Dextromethorphan (Guaifenesin/Dextromethorphan 100-10 Mg/5 Ml Soln 1 0 Ml Cup) 10 ml PO Q4H PRN PRN Reason: Cough Last Admin: 01/30/21 10:45 Dose: 10 ml Documented by: Sodium Chloride (Normal Saline) 1,000 mls @ 125 mls/hr IV ASDIRECTED [facility] Last Admin: 01/30/21 01:51 Dose: 125 mls/hr Documented by: Remdesivir 100 mg/ Sodium (Chloride) 100 mls @ 100 mls/hr IV Q24H [facility] Stop: 01/31/21 21:59 Last Admin: 01/29/21 20:17 Dose: 100 mls/hr Documented by: Lisinopril (Lisinopril 10 Mg Tab) 30 mg PO DAILY [facility] Last Admin: 01/30/21 08:05 Dose: 30 mg Documented by: Pantoprazole Sodium (Pantoprazole 40 Mg Tab.Cr) 40 mg PO ACBREAKFAST [facility] Last Admin: 01/30/21 08:04 Dose: 40 mg Documented by: Rivaroxaban (Rivaroxaban 10 Mg Tab) 20 mg PO BEDTIME [facility] Last Admin: 01/29/21 20:17 Dose: 20 mg Documented by: Sertraline HCl (Sertraline 50 Mg Tab) 100 mg PO DAILY [facility] Last Admin: 01/30/21 08:05 Dose: 100 mg Documented by: Sodium Chloride (Sodium Chloride 0.9% 10 Ml Syringe) 10 ml FLUSH ASDIRECTED PRN PRN Reason: Keep Vein Open Last Admin: 01/27/21 20:42 Dose: 10 ml Documented by: Sodium Chloride (Sodium Chloride 0.9% 2.5 Ml Syringe) 2.5 ml FLUSH ASDIRECTED PRN PRN Reason: Keep Vein Open Last Admin: 01/27/21 20:42 Dose: 2.5 ml Documented by: Discontinued Medications Acetaminophen (Acetaminophen 325 Mg Tab) 650 mg PO NOW ONE Stop: 01/27/21 20:20 Last Admin: 01/27/21 20:42 Dose: 650 mg Documented by: Acetaminophen (Acetaminophen 325 Mg Tab) Confirm Administered Dose 650 mg .ROUTE .STK-MED ONE Stop: 01/27/21 20:20 Last Admin: 01/27/21 20:30 Dose: Not Given Documented by: Albuterol (Albuterol 8 Gm Inhaler) 8 gm INH ONETIME STA Stop: 01/27/21 20:06 Last Admin: 01/27/21 20:41 Dose: 8 gm Documented by: Benzonatate (Benzonatate 100 Mg Cap) 200 mg PO ONETIME ONE Stop: 01/27/21 20:07 Last Admin: 01/27/21 20:43 Dose: 200 mg Documented by: Dexamethasone (Dexamethasone 4 Mg Tab) 4 mg PO DAILY [facility] Last Admin: 01/28/21 10:20 Dose: 4 mg Documented by: Enoxaparin Sodium (Enoxaparin 40 Mg/0.4 Ml Syringe) 40 mg SUBCUT Q24H [facility] Remdesivir 200 mg/ Sodium (Chloride) 250 mls @ 250 mls/hr IV ONETIME ONE Stop: 01/27/21 20:52 Last Admin: 01/27/21 21:40 Dose: 250 mls/hr Documented by: Ceftriaxone Sodium/Dextrose 1 (gm/ Premix) 50 mls @ 100 mls/hr IV ONETIME ONE Stop: 01/27/21 22:00 Last Admin: 01/27/21 22:26 Dose: Not Given Documented by: Influenza Virus Vaccine (Pharmacy To Dose - Influenza Vaccine) 1 each IM ONETIME ONE Stop: 01/28/21 00:13 Influenza Virus Vaccine (Flu Vacc [id number](6mos Up)/Pf 60 Mcg/0.5 Ml Syringe) 60 mcg IM .ONCE ONE Stop: 01/28/21 09:01 Last Admin: 01/28/21 10:22 Dose: Not Given Documented by: Iopamidol (Iopamidol 755 Mg/Ml 500 Ml Multipack Bottle) 75 ml IVPUSH ONETIME ST[facility] Stop: 01/27/21 21:59 Last Admin: 01/27/21 21:59 Dose: 75 ml Documented by: Iopamidol (Iopamidol 755 Mg/Ml 500 Ml Multipack Bottle) 75 ml IVPUSH ONETIME STA Stop: 01/27/21 21:59 Last Admin: 01/27/21 22:00 Dose: 75 ml Documented by: Lorazepam (Lorazepam 2 Mg/Ml Sdv) 1 mg IVPUSH Q8H PRN PRN Reason: Anxiety Stop: 01/29/21 08:00 Lorazepam (Lorazepam 2 Mg/Ml Sdv) 0.5 mg IVPUSH ONETIME ONE Stop: 01/29/21 22:23 Last Admin: 01/29/21 22:30 Dose: 0.5 mg Documented by: Ondansetron HCl (Ondansetron 4 Mg/2 Ml Sdv) 4 mg IVPUSH ONETIME ONE Stop: 01/27/21 20:20 Last Admin: 01/27/21 20:43 Dose: 4 mg Documented by: Ondansetron HCl (Ondansetron 4 Mg/2 Ml Sdv) Confirm Administered Dose 4 mg .ROUTE .STK-MED ONE Stop: 01/27/21 20:20 Last Admin: 01/27/21 20:31 Dose: Not Given Documented by: Rivaroxaban (Rivaroxaban 15 Mg Tab) 15 mg PO BID [facility] Last Admin: 01/28/21 01:04 Dose: Not Given Documented by: Rivaroxaban (Rivaroxaban 15 Mg Tab) 15 mg PO BIDMEALS [facility] Last Admin: 01/28/21 01:03 Dose: Not Given Documented by: Rivaroxaban (Rivaroxaban 10 Mg Tab) 20 mg PO BEDTIME [facility] - Exam Physical Findings Comments:: General: Obese middle aged female. In no distress. Able to speak in full sentences. CVS: S1S2 appreciated. RRR. No murmurs, rubs or gallops lungs: clear bilaterally though diminished with no rales or wheezes. PA: soft, non tender. Obese, bowel sounds present ext: no clubbing, cyanosis or edema. neuro: no focal deficits. psych: stable mood and affect. - Patient Data Result Diagrams: 01/28/21 06:15 01/28/21 06:15 Sepsis Event Note - Evaluation Sepsis Screening Result: Possible Sepsis Risk - Focused Exam Vital Signs: Vital Signs Temp Resp BP BP Pulse Ox 01/30/21 09:00 97.9 F 12 142/79 H 92 L 01/30/21 08:05 143/95 H 01/30/21 08:04 142/93 H 01/30/21 08:00 24 H 144/84 H 89 L 01/30/21 07:00 24 H 127/67 95 01/30/21 06:00 29 H 127/61 95 01/30/21 05:00 28 H 94 L 01/30/21 04:00 97.0 F 31 H 135/82 92 L 01/30/21 03:00 27 H 132/82 93 L 01/30/21 02:00 26 H 136/77 93 L 01/30/21 01:00 27 H 144/80 H 91 L 01/30/21 00:00 97.4 F 26 H 114/58 L 91 L - Problem List & Annotations (1) Pneumonia due to COVID-19 virus SNOMED Code(s): 548507524201646389 Code(s): U07.1 - COVID-19; J12.82 - PNEUMONIA DUE TO CORONAVIRUS DISEASE 2019 Status: Acute Current Visit: Yes (2) Acute respiratory failure due to COVID-19 SNOMED Code(s): 707628279 Code(s): U07.1 - COVID-19; J96.00 - ACUTE RESPIRATORY FAILURE, UNSP W HYPOXIA OR HYPERCAPNIA Status: Acute Current Visit: Yes (3) Morbid obesity SNOMED Code(s): 952108605 Code(s): E66.01 - MORBID (SEVERE) OBESITY DUE TO EXCESS CALORIES Status: Acute Current Visit: Yes (4) SHELTON (obstructive sleep apnea) SNOMED Code(s): 81082009 Code(s): G47.33 - OBSTRUCTIVE SLEEP APNEA (ADULT) (PEDIATRIC) Status: Acute Current Visit: Yes - Problem List Review Problem List Initiated/Reviewed/Updated: Yes - My Orders Last 24 Hours: My Active Orders 01/30/21 10:42 Dextromethorphan/guaiFENesin [Robitussin DM] 10 ml PO Q4H PRN - Plan Plan:: Acute respiratory failure secondary with COVID 19 pneumonia Continue with high flow NC alternating with CPAP. Continue to wean down oxygen as tolerated. Encourage proning Incentive spirometry Maintain a negative fluid balance Duoneb Q 4. Robitussin prn. Covid 19 infection Continue decadron, remdesivir and biracitinib. SHELTON not on CPAP at home CPAP Q HS Obesity lifestyle modification Full code VTE prophylaxis On xarelto for h/o P.E
--- NOTE | 2021-01-30 19:49 | PN ---
THC Physician - Brief Progress [id number]/27/2021 19:41[facility] [place], [place] - JOSE RAUL (KRISTIE) - ANGELIQUE VIVAS COVID+Date of Service 01/30/2021 19:41HPI/E vents of Note Brief eICU NoteI am contacted, requested to write for low dose Ativan PO prn sleep. [employer] having difficulty with CPAP mask on at night.Patient seen on camera: middle aged obese female w ho is returning from bathroom, walking and in NADP 79 116/71 25 94% on HFO2 55l/85%EMR reviewed. Allyson min has a dx of SHELTON but is not on CPAP at home. Per eRT note, patient was on CPAP at 10 last night with a TV around 450. Based on patient's height, IBW is 60kg.I changed CPAP order: decrease to 8 and titrate if needed for goal TV 300-360.I do not recommend benzos for sleep, patient also has underlyi ng SHELTON and hypoxemic respiratory failure. I ordered a one time dose of Trazodone 50mg PO prn insomni a. Defer to bedside Providers in the morning as to whether this should be continued.Please contact u s for assistance if needed.Interventions Major-Respiratory failure - evaluation and managementInterme diate-Other: insomnia
[2021-01-30] MEDS: REMDESIVIR 100 MG in Sodium Chloride 0.9% 100 ML IV SCH (20:00)
[2021-01-30] MEDS: Rivaroxaban 10 MG Tab PO SCH (20:01)
[2021-01-30] MEDS: traZODone 50 MG Tab PO PRN (20:50)
[2021-01-31] MEDS: Albuterol/Ipratropium 3.0-0.5 MG/3 ML Neb Soln NEB SCH ×6 (03:13→21:21)
[2021-01-31] MEDS: Pantoprazole 40 MG Tab.CR PO SCH (08:07)
[2021-01-31] MEDS: Lisinopril 10 MG Tab PO SCH (08:07)
[2021-01-31] MEDS: Dexamethasone 4 MG Tab PO SCH (08:08)
[2021-01-31] MEDS: Sertraline 50 MG Tab PO SCH (08:08)
[2021-01-31] MEDS: amLODIPine 5 MG Tab PO SCH (10:33)
--- NOTE | 2021-01-31 16:25 | PCM.PN ---
- General Info Date of Service: 01/31/21 - Review of Systems Systems Review Comment:: feeling better, reports nonproductive cough - Patient Data Vitals - Most Recent: Last Vital Signs Temp 36.3 C 01/31/21 15:00 Pulse 66 01/27/21 23:00 Resp 23 H 01/31/21 15:00 BP 109/73 01/31/21 15:00 Pulse Ox 91 L 01/31/21 15:00 Weight - Most Recent: 124.9 kg I&O - Last 24 Hours: Intake & Output 01/31/21 01/31/21 01/31/21 06:59 14:59 22:59 Intake Total 300 Output Total 600 Balance -300 Med Orders - Current: Current Medications Hydrocodone Bitart/Acetaminophen (Acetaminophen/Hydrocodone 325-5 Mg Tab) 1 tab PO Q4H PRN PRN Reason: Pain (moderate 4-6) Albuterol (Albuterol 0.083% 2.5 Mg/3 Ml Neb Soln) 2.5 mg NEB Q2H PRN PRN Reason: Shortness Of Breath/wheezing Albuterol/Ipratropium (Albuterol/Ipratropium 3.0-0.5 Mg/3 Ml Neb Soln) 3 ml NEB Q4HRRT [facility] Last Admin: 01/31/21 14:44 Dose: 3 ml Documented by: Amlodipine Besylate (Amlodipine 5 Mg Tab) 10 mg PO DAILY [facility] Last Admin: 01/31/21 10:33 Dose: 10 mg Documented by: Baricitinib (Baricitinib 2 Mg Tab) 4 mg PO DAILY [facility] Stop: 02/10/21 23:16 Last Admin: 01/31/21 08:07 Dose: 4 mg Documented by: Dexamethasone (Dexamethasone 4 Mg Tab) 6 mg PO DAILY [facility] Last Admin: 01/31/21 08:08 Dose: 6 mg Documented by: Guaifenesin/Dextromethorphan (Guaifenesin/Dextromethorphan 100-10 Mg/5 Ml Soln 10 Ml Cup) 10 ml PO Q4H PRN PRN Reason: Cough Last Admin: 01/30/21 10:45 Dose: 10 ml Documented by: Remdesivir 100 mg/ Sodium (Chloride) 100 mls @ 100 mls/hr IV Q24H [facility] Stop: 01/31/21 21:59 Last Admin: 01/30/21 20:00 Dose: 100 mls/hr Documented by: Lisinopril (Lisinopril 10 Mg Tab) 30 mg PO DAILY [facility] Last Admin: 01/31/21 08:07 Dose: 30 mg Documented by: Pantoprazole Sodium (Pantoprazole 40 Mg Tab.Cr) 40 mg PO ACBREAKFAST [facility] Last Admin: 01/31/21 08:07 Dose: 40 mg Documented by: Rivaroxaban (Rivaroxaban 10 Mg Tab) 20 mg PO BEDTIME [facility] Last Admin: 01/30/21 20:01 Dose: 20 mg Documented by: Sertraline HCl (Sertraline 50 Mg Tab) 100 mg PO DAILY [facility] Last Admin: 01/31/21 08:08 Dose: 100 mg Documented by: Sodium Chloride (Sodium Chloride 0.9% 10 Ml Syringe) 10 ml FLUSH ASDIRECTED PRN PRN Reason: Keep Vein Open Last Admin: 01/27/21 20:42 Dose: 10 ml Documented by: Sodium Chloride (Sodium Chloride 0.9% 2.5 Ml Syringe) 2.5 ml FLUSH ASDIRECTED PRN PRN Reason: Keep Vein Open Last Admin: 01/27/21 20:42 Dose: 2.5 ml Documented by: Trazodone HCl (Trazodone 50 Mg Tab) 50 mg PO BEDTIME PRN PRN Reason: Insomnia Last Admin: 01/30/21 20:50 Dose: 50 mg Documented by: Discontinued Medications Acetaminophen (Acetaminophen 325 Mg Tab) 650 mg PO NOW ONE Stop: 01/27/21 20:20 Last Admin: 01/27/21 20:42 Dose: 650 mg Documented by: Acetaminophen (Acetaminophen 325 Mg Tab) Confirm Administered Dose 650 mg .ROUTE .STK-MED ONE Stop: 01/27/21 20:20 Last Admin: 01/27/21 20:30 Dose: Not Given Documented by: Albuterol (Albuterol 8 Gm Inhaler) 8 gm INH ONETIME STA Stop: 01/27/21 20:06 Last Admin: 01/27/21 20:41 Dose: 8 gm Documented by: Benzonatate (Benzonatate 100 Mg Cap) 200 mg PO ONETIME ONE Stop: 01/27/21 20:07 Last Admin: 01/27/21 20:43 Dose: 200 mg Documented by: Dexamethasone (Dexamethasone 4 Mg Tab) 4 mg PO DAILY [facility] Last Admin: 01/28/21 10:20 Dose: 4 mg Documented by: Enoxaparin Sodium (Enoxaparin 40 Mg/0.4 Ml Syringe) 40 mg SUBCUT Q24H [facility] Sodium Chloride (Normal Saline) 1,000 mls @ 125 mls/hr IV ASDIRECTED [facility] Last Admin: 01/30/21 01:51 Dose: 125 mls/hr Documented by: Remdesivir 200 mg/ Sodium (Chloride) 250 mls @ 250 mls/hr IV ONETIME ONE Stop: 01/27/21 20:52 Last Admin: 01/27/21 21:40 Dose: 250 mls/hr Documented by: Ceftriaxone Sodium/Dextrose 1 (gm/ Premix) 50 mls @ 100 mls/hr IV ONETIME ONE Stop: 01/27/21 22:00 Last Admin: 01/27/21 22:26 Dose: Not Given Documented by: Influenza Virus Vaccine (Pharmacy To Dose - Influenza Vaccine) 1 each IM ONETIME ONE Stop: 01/28/21 00:13 Influenza Virus Vaccine (Flu Vacc Ac7150-23(6mos Up)/Pf 60 Mcg/0.5 Ml Syringe) 60 mcg IM .ONCE ONE Stop: 01/28/21 09:01 Last Admin: 01/28/21 10:22 Dose: Not Given Documented by: Iopamidol (Iopamidol 755 Mg/Ml 500 Ml Multipack Bottle) 75 ml IVPUSH ONETIME STA Stop: 01/27/21 21:59 Last Admin: 01/27/21 21:59 Dose: 75 ml Documented by: Iopamidol (Iopamidol 755 Mg/Ml 500 Ml Multipack Bottle) 75 ml IVPUSH ONETIME STA Stop: 01/27/21 21:59 Last Admin: 01/27/21 22:00 Dose: 75 ml Documented by: Lorazepam (Lorazepam 2 Mg/Ml Sdv) 1 mg IVPUSH Q8H PRN PRN Reason: Anxiety Stop: 01/29/21 08:00 Lorazepam (Lorazepam 2 Mg/Ml Sdv) 0.5 mg IVPUSH ONETIME ONE Stop: 01/29/21 22:23 Last Admin: 01/29/21 22:30 Dose: 0.5 mg Documented by: Ondansetron HCl (Ondansetron 4 Mg/2 Ml Sdv) 4 mg IVPUSH ONETIME ONE Stop: 01/27/21 20:20 Last Admin: 01/27/21 20:43 Dose: 4 mg Documented by: Ondansetron HCl (Ondansetron 4 Mg/2 Ml Sdv) Confirm Administered Dose 4 mg .ROUTE .STK-MED ONE Stop: 01/27/21 20:20 Last Admin: 01/27/21 20:31 Dose: Not Given Documented by: Rivaroxaban (Rivaroxaban 15 Mg Tab) 15 mg PO BID [facility] Last Admin: 01/28/21 01:04 Dose: Not Given Documented by: Rivaroxaban (Rivaroxaban 15 Mg Tab) 15 mg PO BIDMEALS [facility] Last Admin: 01/28/21 01:03 Dose: Not Given Documented by: Rivaroxaban (Rivaroxaban 10 Mg Tab) 20 mg PO BEDTIME [facility] - Exam General: Alert, Oriented Lungs: Clear to Auscultation, Normal Respiratory Effort Cardiovascular: Regular Rate, Regular Rhythm GI/Abdominal Exam: Normal Bowel Sounds, Soft, Non-Tender Extremities: Non-Tender, No Pedal Edema Skin: Warm, Dry, Intact Neurological: No New Focal Deficit - Patient Data Result Diagrams: 01/28/21 06:15 01/28/21 06:15 Sepsis Event Note - Evaluation Sepsis Screening Result: Possible Sepsis Risk - Focused Exam Vital Signs: Vital Signs Temp Resp BP BP Pulse Ox 01/31/21 15:00 36.3 C 23 H 109/73 91 L 01/31/21 14:52 91 L 01/31/21 14:00 20 118/66 92 L 01/31/21 13:00 18 110/71 92 L 01/31/21 12:00 36.6 C 15 98/78 95 01/31/21 11:00 36.6 C 22 H 124/75 88 L 01/31/21 10:33 147/88 H 01/31/21 10:00 36.6 C 18 111/71 91 L 01/31/21 09:00 36.6 C 20 107/73 90 L 01/31/21 08:07 131/81 01/31/21 08:00 36.6 C 33 H 131/81 88 L 01/31/21 07:00 23 H 107/54 L 92 L 01/31/21 06:00 23 H 136/75 92 L 01/31/21 05:00 27 H 113/60 90 L - Problem List & Annotations (1) Acute respiratory failure due to COVID-19 SNOMED Code(s): 055050021 Code(s): U07.1 - COVID-19; J96.00 - ACUTE RESPIRATORY FAILURE, UNSP W HYPOXIA OR HYPERCAPNIA Status: Acute Current Visit: Yes (2) Pneumonia due to COVID-19 virus SNOMED Code(s): 152161775545262207 Code(s): U07.1 - COVID-19; J12.82 - PNEUMONIA DUE TO CORONAVIRUS DISEASE 2019 Status: Acute Current Visit: Yes - Problem List Review Problem List Initiated/Reviewed/Updated: Yes - My Orders Last 24 Hours: My Active Orders 01/31/21 05:11 CBC WITH AUTO DIFF [HEME] AM COMPREHENSIVE METABOLIC PN,CMP [CHEM] AM 02/01/21 05:11 CBC WITH AUTO DIFF [HEME] AM COMPREHENSIVE METABOLIC PN,CMP [CHEM] AM 02/02/21 05:11 CBC WITH AUTO DIFF [HEME] AM COMPREHENSIVE METABOLIC PN,CMP [CHEM] AM 02/03/21 05:11 CBC WITH AUTO DIFF [HEME] AM COMPREHENSIVE METABOLIC PN,CMP [CHEM] AM 02/04/21 05:11 CBC WITH AUTO DIFF [HEME] AM COMPREHENSIVE METABOLIC PN,CMP [CHEM] AM - Plan Plan:: 60 yo female admitted with acute respiratory failure secondary with COVID 19 pneumonia weened down to 10 L NC Encourage proning Incentive spirometry Maintain a negative fluid balance Duoneb Q 4. Robitussin prn. Covid 19 infection Continue Decadron, remdesivir and baricitinib. SHELTON not on CPAP at home CPAP Q HS VTE prophylaxis On xarelto for h/o P.E
[2021-01-31 16:50] LABS: BLOOD UREA NITROGEN,BUN 23 mg/dL (7.0-18.0); CARBON DIOXIDE,CO2 28.4 mmol/L (21.0-32.0); CHLORIDE,CL 105 mmol/L (98-107); GLUCOSE RANDOM 224 mg/dL (74-106); POTASSIUM,K 4.2 mmol/L (3.5-5.1); SODIUM,NA 141 mmol/L (136-145)
[2021-01-31] MEDS: REMDESIVIR 100 MG in Sodium Chloride 0.9% 100 ML IV SCH (20:25)
[2021-01-31] MEDS: Rivaroxaban 10 MG Tab PO SCH (20:25)
[2021-01-31] MEDS: traZODone 50 MG Tab PO PRN (21:21)
[2021-02-01] MEDS: Albuterol/Ipratropium 3.0-0.5 MG/3 ML Neb Soln NEB SCH ×7 (01:49→21:42)
[2021-02-01 07:11] LABS: BLOOD UREA NITROGEN,BUN 20 mg/dL (7.0-18.0); CARBON DIOXIDE,CO2 29.3 mmol/L (21.0-32.0); CHLORIDE,CL 109 mmol/L (98-107); GLUCOSE RANDOM 103 mg/dL (74-106); POTASSIUM,K 4.2 mmol/L (3.5-5.1); SODIUM,NA 146 mmol/L (136-145)
[2021-02-01] MEDS: Sertraline 50 MG Tab PO SCH (08:00)
[2021-02-01] MEDS: Lisinopril 10 MG Tab PO SCH (08:01)
[2021-02-01] MEDS: Pantoprazole 40 MG Tab.CR PO SCH (08:01)
[2021-02-01] MEDS: Dexamethasone 4 MG Tab PO SCH (08:01)
[2021-02-01] MEDS: amLODIPine 5 MG Tab PO SCH (08:01)
--- NOTE | 2021-02-01 13:16 | PCM.PN ---
- General Info Date of Service: 02/01/21 - Review of Systems Systems Review Comment:: feeling better, shortness of breath improving - Patient Data Vitals - Most Recent: Last Vital Signs Temp 36.7 C 02/01/21 12:00 Pulse 66 01/27/21 23:00 Resp 25 H 02/01/21 12:00 BP 111/66 02/01/21 11:00 Pulse Ox 90 L 02/01/21 12:00 Weight - Most Recent: 124.454 kg I&O - Last 24 Hours: Intake & Output 01/31/21 02/01/21 02/01/21 22:59 06:59 14:59 Intake Total 3000 400 Output Total 1600 1000 Balance 1400 -600 Lab Results Last 24 Hours: Laboratory Results - last 24 hr 01/31/21 01/31/21 02/01/21 Range/Units 16:07 16:07 06:35 WBC 7.60 7.36 (4.0-11.0) K/uL RBC 4.33 4.12 L (4.30-5.90) M/uL Hgb 13.3 12.7 (12.0-16.0) g/dL Hct 40.7 38.3 (36.0-46.0) % MCV 94.0 93.0 (80.0-98.0) fL MCH 30.7 30.8 (27.0-32.0) pg MCHC 32.7 33.2 (31.0-37.0) g/dL RDW Std Deviation 49.7 49.5 (28.0-62.0) fl RDW Coeff of Ashly 14 14 (11.0-15.0) % Plt Count 358 312 (150-400) K/uL MPV 10.10 9.80 (7.40-12.00) fL Neut % (Auto) 78.6 66.6 (48.0-80.0) % Lymph % (Auto) 11.8 L 18.5 (16.0-40.0) % [place] % (Auto) 9.3 14.5 (0.0-15.0) % Eos % (Auto) 0.0 0.0 (0.0-7.0) % Baso % (Auto) 0.3 0.4 (0.0-1.5) % Neut # (Auto) 6.0 H 4.9 (1.4-5.7) K/uL Lymph # (Auto) 0.9 1.4 (0.6-2.4) K/uL [place] # (Auto) 0.7 1.1 H (0.0-0.8) K/uL Eos # (Auto) 0.0 0.0 (0.0-0.7) K/uL Baso # (Auto) 0.0 0.0 (0.0-0.1) K/uL Nucleated RBC % 0.0 0.0 /100WBC Nucleated RBCs # 0 0 K/uL Sodium 141 (136-145) mmol/L Potassium 4.2 (3.5-5.1) mmol/L Chloride 105 (98-107) mmol/L Carbon Dioxide 28.4 (21.0-32.0) mmol/L BUN 23 H (7.0-18.0) mg/dL Creatinine 0.9 (0.6-1.0) mg/dL Est Cr Clr Drug Dosing 61.45 mL/min Estimated GFR (MDRD) > 60.0 ml/min Glucose 224 H (74-106) mg/dL Calcium 8.2 L (8.5-10.1) mg/dL Total Bilirubin 0.6 (0.2-1.0) mg/dL AST 23 (15-37) IU/L ALT 42 (14-63) IU/L Alkaline Phosphatase 49 (46-116) U/L Total Protein 6.5 (6.4-8.2) g/dL Albumin 2.8 L (3.4-5.0) g/dL Globulin 3.7 (2.6-4.0) g/dL Albumin/Globulin Ratio 0.8 L (0.9-1.6) 02/01/21 Range/Units 06:35 WBC (4.0-11.0) K/uL RBC (4.30-5.90) M/uL Hgb (12.0-16.0) g/dL Hct (36.0-46.0) % MCV (80.0-98.0) fL MCH (27.0-32.0) pg MCHC (31.0-37.0) g/dL RDW Std Deviation (28.0-62.0) fl RDW Coeff of Ashly (11.0-15.0) % Plt Count (150-400) K/uL MPV (7.40-12.00) fL Neut % (Auto) (48.0-80.0) % Lymph % (Auto) (16.0-40.0) % [place] % (Auto) (0.0-15.0) % Eos % (Auto) (0.0-7.0) % Baso % (Auto) (0.0-1.5) % Neut # (Auto) (1.4-5.7) K/uL Lymph # (Auto) (0.6-2.4) K/uL [place] # (Auto) (0.0-0.8) K/uL Eos # (Auto) (0.0-0.7) K/uL Baso # (Auto) (0.0-0.1) K/uL Nucleated RBC % /100WBC Nucleated RBCs # K/uL Sodium 146 H (136-145) mmol/L Potassium 4.2 (3.5-5.1) mmol/L Chloride 109 H (98-107) mmol/L Carbon Dioxide 29.3 (21.0-32.0) mmol/L BUN 20 H (7.0-18.0) mg/dL Creatinine 0.8 (0.6-1.0) mg/dL Est Cr Clr Drug Dosing 69.13 mL/min Estimated GFR (MDRD) > 60.0 ml/min Glucose 103 (74-106) mg/dL Calcium 8.1 L (8.5-10.1) mg/dL Total Bilirubin 0.5 (0.2-1.0) mg/dL AST 17 (15-37) IU/L ALT 36 (14-63) IU/L Alkaline Phosphatase 46 (46-116) U/L Total Protein 5.6 L (6.4-8.2) g/dL Albumin 2.6 L (3.4-5.0) g/dL Globulin 3.0 (2.6-4.0) g/dL Albumin/Globulin Ratio 0.9 (0.9-1.6) Med Orders - Current: Current Medications Hydrocodone Bitart/Acetaminophen (Acetaminophen/Hydrocodone 325-5 Mg Tab) 1 tab PO Q4H PRN PRN Reason: Pain (moderate 4-6) Albuterol (Albuterol 0.083% 2.5 Mg/3 Ml Neb Soln) 2.5 mg NEB Q2H PRN PRN Reason: Shortness Of Breath/wheezing Albuterol/Ipratropium (Albuterol/Ipratropium 3.0-0.5 Mg/3 Ml Neb Soln) 3 ml NEB Q4HRRT [facility] Last Admin: 02/01/21 09:45 Dose: 3 ml Documented by: Amlodipine Besylate (Amlodipine 5 Mg Tab) 10 mg PO DAILY [facility] Last Admin: 02/01/21 08:01 Dose: 10 mg Documented by: Baricitinib (Baricitinib 2 Mg Tab) 4 mg PO DAILY [facility] Stop: 02/10/21 23:16 Last Admin: 02/01/21 08:02 Dose: 4 mg Documented by: Dexamethasone (Dexamethasone 4 Mg Tab) 6 mg PO DAILY [facility] Last Admin: 02/01/21 08:01 Dose: 6 mg Documented by: Guaifenesin/Dextromethorphan (Guaifenesin/Dextromethorphan 100-10 Mg/5 Ml Soln 10 Ml Cup) 10 ml PO Q4H PRN PRN Reason: Cough Last Admin: 01/30/21 10:45 Dose: 10 ml Documented by: Lisinopril (Lisinopril 10 Mg Tab) 30 mg PO DAILY [facility] Last Admin: 02/01/21 08:01 Dose: 30 mg Documented by: Pantoprazole Sodium (Pantoprazole 40 Mg Tab.Cr) 40 mg PO ACBREAKFAST [facility] Last Admin: 02/01/21 08:01 Dose: 40 mg Documented by: Rivaroxaban (Rivaroxaban 10 Mg Tab) 20 mg PO BEDTIME [facility] Last Admin: 01/31/21 20:25 Dose: 20 mg Documented by: Sertraline HCl (Sertraline 50 Mg Tab) 100 mg PO DAILY [facility] Last Admin: 02/01/21 08:00 Dose: 100 mg Documented by: Sodium Chloride (Sodium Chloride 0.9% 10 Ml Syringe) 10 ml FLUSH ASDIRECTED PRN PRN Reason: Keep Vein Open Last Admin: 01/27/21 20:42 Dose: 10 ml Documented by: Sodium Chloride (Sodium Chloride 0.9% 2.5 Ml Syringe) 2.5 ml FLUSH ASDIRECTED PRN PRN Reason: Keep Vein Open Last Admin: 01/27/21 20:42 Dose: 2.5 ml Documented by: Trazodone HCl (Trazodone 50 Mg Tab) 50 mg PO BEDTIME PRN PRN Reason: Insomnia Last Admin: 01/31/21 21:21 Dose: 50 mg Documented by: Discontinued Medications Acetaminophen (Acetaminophen 325 Mg Tab) 650 mg PO NOW ONE Stop: 01/27/21 20:20 Last Admin: 01/27/21 20:42 Dose: 650 mg Documented by: Acetaminophen (Acetaminophen 325 Mg Tab) Confirm Administered Dose 650 mg .ROUTE .STK-MED ONE Stop: 01/27/21 20:20 Last Admin: 01/27/21 20:30 Dose: Not Given Documented by: Albuterol (Albuterol 8 Gm Inhaler) 8 gm INH ONETIME STA Stop: 01/27/21 20:06 Last Admin: 01/27/21 20:41 Dose: 8 gm Documented by: Benzonatate (Benzonatate 100 Mg Cap) 200 mg PO ONETIME ONE Stop: 01/27/21 20:07 Last Admin: 01/27/21 20:43 Dose: 200 mg Documented by: Dexamethasone (Dexamethasone 4 Mg Tab) 4 mg PO DAILY [facility] Last Admin: 01/28/21 10:20 Dose: 4 mg Documented by: Enoxaparin Sodium (Enoxaparin 40 Mg/0.4 Ml Syringe) 40 mg SUBCUT Q24H [facility] Sodium Chloride (Normal Saline) 1,000 mls @ 125 mls/hr IV ASDIRECTED [facility] Last Admin: 01/30/21 01:51 Dose: 125 mls/hr Documented by: Remdesivir 200 mg/ Sodium (Chloride) 250 mls @ 250 mls/hr IV ONETIME ONE Stop: 01/27/21 20:52 Last Admin: 01/27/21 21:40 Dose: 250 mls/hr Documented by: Ceftriaxone Sodium/Dextrose 1 (gm/ Premix) 50 mls @ 100 mls/hr IV ONETIME ONE Stop: 01/27/21 22:00 Last Admin: 01/27/21 22:26 Dose: Not Given Documented by: Remdesivir 100 mg/ Sodium (Chloride) 100 mls @ 100 mls/hr IV Q24H [facility] Stop: 01/31/21 21:59 Last Admin: 01/31/21 20:25 Dose: 100 mls/hr Documented by: Influenza Virus Vaccine (Pharmacy To Dose - Influenza Vaccine) 1 each IM ONETIME ONE Stop: 01/28/21 00:13 Influenza Virus Vaccine (Flu Vacc [id number](6mos Up)/Pf 60 Mcg/0.5 Ml Syringe) 60 mcg IM .ONCE ONE Stop: 01/28/21 09:01 Last Admin: 01/28/21 10:22 Dose: Not Given Documented by: Iopamidol (Iopamidol 755 Mg/Ml 500 Ml Multipack Bottle) 75 ml IVPUSH ONETIME STA Stop: 01/27/21 21:59 Last Admin: 01/27/21 21:59 Dose: 75 ml Documented by: Iopamidol (Iopamidol 755 Mg/Ml 500 Ml Multipack Bottle) 75 ml IVPUSH ONETIME STA Stop: 01/27/21 21:59 Last Admin: 01/27/21 22:00 Dose: 75 ml Documented by: Lorazepam (Lorazepam 2 Mg/Ml Sdv) 1 mg IVPUSH Q8H PRN PRN Reason: Anxiety Stop: 01/29/21 08:00 Lorazepam (Lorazepam 2 Mg/Ml Sdv) 0.5 mg IVPUSH ONETIME ONE Stop: 01/29/21 22:23 Last Admin: 01/29/21 22:30 Dose: 0.5 mg Documented by: Ondansetron HCl (Ondansetron 4 Mg/2 Ml Sdv) 4 mg IVPUSH ONETIME ONE Stop: 01/27/21 20:20 Last Admin: 01/27/21 20:43 Dose: 4 mg Documented by: Ondansetron HCl (Ondansetron 4 Mg/2 Ml Sdv) Confirm Administered Dose 4 mg .ROUTE .STK-MED ONE Stop: 01/27/21 20:20 Last Admin: 01/27/21 20:31 Dose: Not Given Documented by: Rivaroxaban (Rivaroxaban 15 Mg Tab) 15 mg PO BID [facility] Last Admin: 01/28/21 01:04 Dose: Not Given Documented by: Rivaroxaban (Rivaroxaban 15 Mg Tab) 15 mg PO BIDMEALS [facility] Last Admin: 01/28/21 01:03 Dose: Not Given Documented by: Rivaroxaban (Rivaroxaban 10 Mg Tab) 20 mg PO BEDTIME [facility] - Exam General: Alert, Oriented HEENT: Pupils Equal Neck: Supple Lungs: Clear to Auscultation, Normal Respiratory Effort Cardiovascular: Regular Rate, Regular Rhythm GI/Abdominal Exam: Soft, Non-Tender, No Distention Extremities: Non-Tender, No Pedal Edema Skin: Warm, Dry, Intact Neurological: No New Focal Deficit - Patient Data Lab Results Last 24 hrs: Laboratory Results - last 24 hr 01/31/21 01/31/21 02/01/21 Range/Units 16:07 16:07 06:35 WBC 7.60 7.36 (4.0-11.0) K/uL RBC 4.33 4.12 L (4.30-5.90) M/uL Hgb 13.3 12.7 (12.0-16.0) g/dL Hct 40.7 38.3 (36.0-46.0) % MCV 94.0 93.0 (80.0-98.0) fL MCH 30.7 30.8 (27.0-32.0) pg MCHC 32.7 33.2 (31.0-37.0) g/dL RDW Std Deviation 49.7 49.5 (28.0-62.0) fl RDW Coeff of Ashly 14 14 (11.0-15.0) % Plt Count 358 312 (150-400) K/uL MPV 10.10 9.80 (7.40-12.00) fL Neut % (Auto) 78.6 66.6 (48.0-80.0) % Lymph % (Auto) 11.8 L 18.5 (16.0-40.0) % [place] % (Auto) 9.3 14.5 (0.0-15.0) % Eos % (Auto) 0.0 0.0 (0.0-7.0) % Baso % (Auto) 0.3 0.4 (0.0-1.5) % Neut # (Auto) 6.0 H 4.9 (1.4-5.7) K/uL Lymph # (Auto) 0.9 1.4 (0.6-2.4) K/uL [place] # (Auto) 0.7 1.1 H (0.0-0.8) K/uL Eos # (Auto) 0.0 0.0 (0.0-0.7) K/uL Baso # (Auto) 0.0 0.0 (0.0-0.1) K/uL Nucleated RBC % 0.0 0.0 /100WBC Nucleated RBCs # 0 0 K/uL Sodium 141 (136-145) mmol/L Potassium 4.2 (3.5-5.1) mmol/L Chloride 105 (98-107) mmol/L Carbon Dioxide 28.4 (21.0-32.0) mmol/L BUN 23 H (7.0-18.0) mg/dL Creatinine 0.9 (0.6-1.0) mg/dL Est Cr Clr Drug Dosing 61.45 mL/min Estimated GFR (MDRD) > 60.0 ml/min Glucose 224 H (74-106) mg/dL Calcium 8.2 L (8.5-10.1) mg/dL Total Bilirubin 0.6 (0.2-1.0) mg/dL AST 23 (15-37) IU/L ALT 42 (14-63) IU/L Alkaline Phosphatase 49 (46-116) U/L Total Protein 6.5 (6.4-8.2) g/dL Albumin 2.8 L (3.4-5.0) g/dL Globulin 3.7 (2.6-4.0) g/dL Albumin/Globulin Ratio 0.8 L (0.9-1.6) 02/01/21 Range/Units 06:35 WBC (4.0-11.0) K/uL RBC (4.30-5.90) M/uL Hgb (12.0-16.0) g/dL Hct (36.0-46.0) % MCV (80.0-98.0) fL MCH (27.0-32.0) pg MCHC (31.0-37.0) g/dL RDW Std Deviation (28.0-62.0) fl RDW Coeff of Ashly (11.0-15.0) % Plt Count (150-400) K/uL MPV (7.40-12.00) fL Neut % (Auto) (48.0-80.0) % Lymph % (Auto) (16.0-40.0) % [place] % (Auto) (0.0-15.0) % Eos % (Auto) (0.0-7.0) % Baso % (Auto) (0.0-1.5) % Neut # (Auto) (1.4-5.7) K/uL Lymph # (Auto) (0.6-2.4) K/uL [place] # (Auto) (0.0-0.8) K/uL Eos # (Auto) (0.0-0.7) K/uL Baso # (Auto) (0.0-0.1) K/uL Nucleated RBC % /100WBC Nucleated RBCs # K/uL Sodium 146 H (136-145) mmol/L Potassium 4.2 (3.5-5.1) mmol/L Chloride 109 H (98-107) mmol/L Carbon Dioxide 29.3 (21.0-32.0) mmol/L BUN 20 H (7.0-18.0) mg/dL Creatinine 0.8 (0.6-1.0) mg/dL Est Cr Clr Drug Dosing 69.13 mL/min Estimated GFR (MDRD) > 60.0 ml/min Glucose 103 (74-106) mg/dL Calcium 8.1 L (8.5-10.1) mg/dL Total Bilirubin 0.5 (0.2-1.0) mg/dL AST 17 (15-37) IU/L ALT 36 (14-63) IU/L Alkaline Phosphatase 46 (46-116) U/L Total Protein 5.6 L (6.4-8.2) g/dL Albumin 2.6 L (3.4-5.0) g/dL Globulin 3.0 (2.6-4.0) g/dL Albumin/Globulin Ratio 0.9 (0.9-1.6) Result Diagrams: 02/01/21 06:35 02/01/21 06:35 Sepsis Event Note - Evaluation Sepsis Screening Result: No Definite Risk - Focused Exam Vital Signs: Vital Signs Temp Resp BP BP Pulse Ox Pulse Ox 02/01/21 12:00 36.7 C 25 H 90 L 02/01/21 11:00 25 H 111/66 90 L 02/01/21 10:00 22 H 114/67 92 L 02/01/21 09:00 15 105/70 92 L 92 L 02/01/21 08:01 161/87 H 02/01/21 08:00 36.3 C 19 164/92 H 90 L 02/01/21 07:00 19 161/87 H 92 L 02/01/21 06:00 20 135/81 92 L 02/01/21 05:00 20 94 L 02/01/21 04:00 36.4 C 21 H 132/85 94 L 02/01/21 03:00 20 146/81 H 94 L 02/01/21 01:55 20 146/86 H 92 L - Problem List & Annotations (1) Acute respiratory failure due to COVID-19 SNOMED Code(s): 200342572 Code(s): U07.1 - COVID-19; J96.00 - ACUTE RESPIRATORY FAILURE, UNSP W HYPOXIA OR HYPERCAPNIA Status: Acute Current Visit: Yes (2) Pneumonia due to COVID-19 virus SNOMED Code(s): 387612246019219878 Code(s): U07.1 - COVID-19; J12.82 - PNEUMONIA DUE TO CORONAVIRUS DISEASE 2019 Status: Acute Current Visit: Yes - Problem List Review Problem List Initiated/Reviewed/Updated: Yes - My Orders Last 24 Hours: My Active Orders 02/01/21 12:16 Transfer Patient (Change bed) [ADT] Routine 02/02/21 05:11 CBC WITH AUTO DIFF [HEME] AM COMPREHENSIVE METABOLIC PN,CMP [CHEM] AM 02/03/21 05:11 CBC WITH AUTO DIFF [HEME] AM COMPREHENSIVE METABOLIC PN,CMP [CHEM] AM 02/04/21 05:11 CBC WITH AUTO DIFF [HEME] AM COMPREHENSIVE METABOLIC PN,CMP [CHEM] AM - Plan Plan:: 60 yo female admitted with acute respiratory failure secondary with COVID 19 pneumonia weened down to 6 L NC Encourage proning Incentive spirometry Maintain a negative fluid balance Duoneb Q 4. Robitussin prn. Covid 19 infection Continue Decadron, and baricitinib, finished remdesivir. SHELTON not on CPAP at home CPAP Q HS VTE prophylaxis On xarelto for h/o P.E will transfer to regular medical floor
[2021-02-01] MEDS: traZODone 50 MG Tab PO PRN (21:42)
[2021-02-01] MEDS: Rivaroxaban 10 MG Tab PO SCH (21:42)
[2021-02-02] MEDS: Albuterol/Ipratropium 3.0-0.5 MG/3 ML Neb Soln NEB SCH ×6 (02:00→21:09)
[2021-02-02] MEDS: Pantoprazole 40 MG Tab.CR PO SCH (06:33)
[2021-02-02 07:37] LABS: BLOOD UREA NITROGEN,BUN 23 mg/dL (7.0-18.0); CARBON DIOXIDE,CO2 33.6 mmol/L (21.0-32.0); CHLORIDE,CL 107 mmol/L (98-107); GLUCOSE RANDOM 95 mg/dL (74-106); POTASSIUM,K 4.9 mmol/L (3.5-5.1); SODIUM,NA 143 mmol/L (136-145)
[2021-02-02] MEDS: Lisinopril 10 MG Tab PO SCH (08:12)
[2021-02-02] MEDS: Dexamethasone 4 MG Tab PO SCH (08:13)
[2021-02-02] MEDS: amLODIPine 5 MG Tab PO SCH (08:13)
[2021-02-02] MEDS: Sertraline 50 MG Tab PO SCH (08:13)
--- NOTE | 2021-02-02 13:41 | PCM.PN ---
- General Info Date of Service: 02/02/21 - Patient Data Vitals - Most Recent: Last Vital Signs Temp 36.2 C 02/02/21 08:00 Pulse 67 02/02/21 08:00 Resp 20 02/02/21 08:00 BP 140/90 02/02/21 08:13 Pulse Ox 91 L 02/02/21 08:00 Weight - Most Recent: 124.341 kg I&O - Last 24 Hours: Intake & Output 02/01/21 02/02/21 02/02/21 22:59 06:59 14:59 Intake Total 2080 450 Output Total 1900 550 Balance 180 -100 Lab Results Last 24 Hours: Laboratory Results - last 24 hr 02/02/21 02/02/21 Range/Units 06:16 06:16 WBC 9.77 (4.0-11.0) K/uL RBC 4.34 (4.30-5.90) M/uL Hgb 13.4 (12.0-16.0) g/dL Hct 40.9 (36.0-46.0) % MCV 94.2 (80.0-98.0) fL MCH 30.9 (27.0-32.0) pg MCHC 32.8 (31.0-37.0) g/dL RDW Std Deviation 50.3 (28.0-62.0) fl RDW Coeff of Ashly 15 (11.0-15.0) % Plt Count 399 (150-400) K/uL MPV 10.40 (7.40-12.00) fL Add Manual Diff YES Neutrophils % (Manual) 65 (48.0-80.0) % Band Neutrophils % 2 % Lymphocytes % (Manual) 19 (16.0-40.0) % Monocytes % (Manual) 11 (0.0-15.0) % Metamyelocytes % 2 % Myelocytes % 1 % Nucleated RBC % 0.0 /100WBC Absolute Seg Neuts 6.4 H (1.4-5.7) Band Neutrophils # 0.2 Lymphocytes # (Manual) 1.9 (0.6-2.4) Monocytes # (Manual) 1.1 H (0.0-0.8) Absolute Metamyelocyte 0.2 Absolute Myelocytes 0.1 Nucleated RBCs # 0 K/uL Sodium 143 (136-145) mmol/L Potassium 4.9 (3.5-5.1) mmol/L Chloride 107 (98-107) mmol/L Carbon Dioxide 33.6 H (21.0-32.0) mmol/L BUN 23 H (7.0-18.0) mg/dL Creatinine 0.9 (0.6-1.0) mg/dL Est Cr Clr Drug Dosing 61.45 mL/min Estimated GFR (MDRD) > 60.0 ml/min Glucose 95 (74-106) mg/dL Calcium 8.5 (8.5-10.1) mg/dL Total Bilirubin 0.6 (0.2-1.0) mg/dL AST 15 (15-37) IU/L ALT 33 (14-63) IU/L Alkaline Phosphatase 50 (46-116) U/L Total Protein 6.3 L (6.4-8.2) g/dL Albumin 2.7 L (3.4-5.0) g/dL Globulin 3.6 (2.6-4.0) g/dL Albumin/Globulin Ratio 0.8 L (0.9-1.6) Med Orders - Current: Current Medications Hydrocodone Bitart/Acetaminophen (Acetaminophen/Hydrocodone 325-5 Mg Tab) 1 tab PO Q4H PRN PRN Reason: Pain (moderate 4-6) Albuterol (Albuterol 0.083% 2.5 Mg/3 Ml Neb Soln) 2.5 mg NEB Q2H PRN PRN Reason: Shortness Of Breath/wheezing Albuterol/Ipratropium (Albuterol/Ipratropium 3.0-0.5 Mg/3 Ml Neb Soln) 3 ml NEB Q4HRRT [facility] Last Admin: 02/02/21 13:03 Dose: 3 ml Documented by: Amlodipine Besylate (Amlodipine 5 Mg Tab) 10 mg PO DAILY [facility] Last Admin: 02/02/21 08:13 Dose: 10 mg Documented by: Baricitinib (Baricitinib 2 Mg Tab) 4 mg PO DAILY [facility] Stop: 02/10/21 23:16 Last Admin: 02/02/21 08:13 Dose: 4 mg Documented by: Dexamethasone (Dexamethasone 4 Mg Tab) 6 mg PO DAILY [facility] Last Admin: 02/02/21 08:13 Dose: 6 mg Documented by: Guaifenesin/Dextromethorphan (Guaifenesin/Dextromethorphan 100-10 Mg/5 Ml Soln 10 Ml Cup) 10 ml PO Q4H PRN PRN Reason: Cough Last Admin: 01/30/21 10:45 Dose: 10 ml Documented by: Lisinopril (Lisinopril 10 Mg Tab) 30 mg PO DAILY [facility] Last Admin: 02/02/21 08:12 Dose: 30 mg Documented by: Pantoprazole Sodium (Pantoprazole 40 Mg Tab.Cr) 40 mg PO ACBREAKFAST [facility] Last Admin: 02/02/21 06:33 Dose: 40 mg Documented by: Rivaroxaban (Rivaroxaban 10 Mg Tab) 20 mg PO BEDTIME [facility] Last Admin: 02/01/21 21:42 Dose: 20 mg Documented by: Sertraline HCl (Sertraline 50 Mg Tab) 100 mg PO DAILY [facility] Last Admin: 02/02/21 08:13 Dose: 100 mg Documented by: Sodium Chloride (Sodium Chloride 0.9% 10 Ml Syringe) 10 ml FLUSH ASDIRECTED PRN PRN Reason: Keep Vein Open Last Admin: 01/27/21 20:42 Dose: 10 ml Documented by: Sodium Chloride (Sodium Chloride 0.9% 2.5 Ml Syringe) 2.5 ml FLUSH ASDIRECTED PRN PRN Reason: Keep Vein Open Last Admin: 01/27/21 20:42 Dose: 2.5 ml Documented by: Trazodone HCl (Trazodone 50 Mg Tab) 50 mg PO BEDTIME PRN PRN Reason: Insomnia Last Admin: 02/01/21 21:42 Dose: 50 mg Documented by: Discontinued Medications Acetaminophen (Acetaminophen 325 Mg Tab) 650 mg PO NOW ONE Stop: 01/27/21 20:20 Last Admin: 01/27/21 20:42 Dose: 650 mg Documented by: Acetaminophen (Acetaminophen 325 Mg Tab) Confirm Administered Dose 650 mg .ROUTE .STK-MED ONE Stop: 01/27/21 20:20 Last Admin: 01/27/21 20:30 Dose: Not Given Documented by: Albuterol (Albuterol 8 Gm Inhaler) 8 gm INH ONETIME STA Stop: 01/27/21 20:06 Last Admin: 01/27/21 20:41 Dose: 8 gm Documented by: Benzonatate (Benzonatate 100 Mg Cap) 200 mg PO ONETIME ONE Stop: 01/27/21 20:07 Last Admin: 01/27/21 20:43 Dose: 200 mg Documented by: Dexamethasone (Dexamethasone 4 Mg Tab) 4 mg PO DAILY [facility] Last Admin: 01/28/21 10:20 Dose: 4 mg Documented by: Enoxaparin Sodium (Enoxaparin 40 Mg/0.4 Ml Syringe) 40 mg SUBCUT Q24H [facility] Sodium Chloride (Normal Saline) 1,000 mls @ 125 mls/hr IV ASDIRECTED [facility] Last Admin: 01/30/21 01:51 Dose: 125 mls/hr Documented by: Remdesivir 200 mg/ Sodium (Chloride) 250 mls @ 250 mls/hr IV ONETIME ONE Stop: 01/27/21 20:52 Last Admin: 01/27/21 21:40 Dose: 250 mls/hr Documented by: Ceftriaxone Sodium/Dextrose 1 (gm/ Premix) 50 mls @ 100 mls/hr IV ONETIME ONE Stop: 01/27/21 22:00 Last Admin: 01/27/21 22:26 Dose: Not Given Documented by: Remdesivir 100 mg/ Sodium (Chloride) 100 mls @ 100 mls/hr IV Q24H [facility] Stop: 01/31/21 21:59 Last Admin: 01/31/21 20:25 Dose: 100 mls/hr Documented by: Influenza Virus Vaccine (Pharmacy To Dose - Influenza Vaccine) 1 each IM ONETIME ONE Stop: 01/28/21 00:13 Influenza Virus Vaccine (Flu Vacc [id number](6mos Up)/Pf 60 Mcg/0.5 Ml Syringe) 60 mcg IM .ONCE ONE Stop: 01/28/21 09:01 Last Admin: 01/28/21 10:22 Dose: Not Given Documented by: Iopamidol (Iopamidol 755 Mg/Ml 500 Ml Multipack Bottle) 75 ml IVPUSH ONETIME STA Stop: 01/27/21 21:59 Last Admin: 01/27/21 21:59 Dose: 75 ml Documented by: Iopamidol (Iopamidol 755 Mg/Ml 500 Ml Multipack Bottle) 75 ml IVPUSH ONETIME STA Stop: 01/27/21 21:59 Last Admin: 01/27/21 22:00 Dose: 75 ml Documented by: Lorazepam (Lorazepam 2 Mg/Ml Sdv) 1 mg IVPUSH Q8H PRN PRN Reason: Anxiety Stop: 01/29/21 08:00 Lorazepam (Lorazepam 2 Mg/Ml Sdv) 0.5 mg IVPUSH ONETIME ONE Stop: 01/29/21 22:23 Last Admin: 01/29/21 22:30 Dose: 0.5 mg Documented by: Ondansetron HCl (Ondansetron 4 Mg/2 Ml Sdv) 4 mg IVPUSH ONETIME ONE Stop: 01/27/21 20:20 Last Admin: 01/27/21 20:43 Dose: 4 mg Documented by: Ondansetron HCl (Ondansetron 4 Mg/2 Ml Sdv) Confirm Administered Dose 4 mg .ROUTE .STK-MED ONE Stop: 01/27/21 20:20 Last Admin: 01/27/21 20:31 Dose: Not Given Documented by: Rivaroxaban (Rivaroxaban 15 Mg Tab) 15 mg PO BID [facility] Last Admin: 01/28/21 01:04 Dose: Not Given Documented by: Rivaroxaban (Rivaroxaban 15 Mg Tab) 15 mg PO BIDMEALS [facility] Last Admin: 01/28/21 01:03 Dose: Not Given Documented by: Rivaroxaban (Rivaroxaban 10 Mg Tab) 20 mg PO BEDTIME [facility] - Patient Data Lab Results Last 24 hrs: Laboratory Results - last 24 hr 02/02/21 02/02/21 Range/Units 06:16 06:16 WBC 9.77 (4.0-11.0) K/uL RBC 4.34 (4.30-5.90) M/uL Hgb 13.4 (12.0-16.0) g/dL Hct 40.9 (36.0-46.0) % MCV 94.2 (80.0-98.0) fL MCH 30.9 (27.0-32.0) pg MCHC 32.8 (31.0-37.0) g/dL RDW Std Deviation 50.3 (28.0-62.0) fl RDW Coeff of Ashly 15 (11.0-15.0) % Plt Count 399 (150-400) K/uL MPV 10.40 (7.40-12.00) fL Add Manual Diff YES Neutrophils % (Manual) 65 (48.0-80.0) % Band Neutrophils % 2 % Lymphocytes % (Manual) 19 (16.0-40.0) % Monocytes % (Manual) 11 (0.0-15.0) % Metamyelocytes % 2 % Myelocytes % 1 % Nucleated RBC % 0.0 /100WBC Absolute Seg Neuts 6.4 H (1.4-5.7) Band Neutrophils # 0.2 Lymphocytes # (Manual) 1.9 (0.6-2.4) Monocytes # (Manual) 1.1 H (0.0-0.8) Absolute Metamyelocyte 0.2 Absolute Myelocytes 0.1 Nucleated RBCs # 0 K/uL Sodium 143 (136-145) mmol/L Potassium 4.9 (3.5-5.1) mmol/L Chloride 107 (98-107) mmol/L Carbon Dioxide 33.6 H (21.0-32.0) mmol/L BUN 23 H (7.0-18.0) mg/dL Creatinine 0.9 (0.6-1.0) mg/dL Est Cr Clr Drug Dosing 61.45 mL/min Estimated GFR (MDRD) > 60.0 ml/min Glucose 95 (74-106) mg/dL Calcium 8.5 (8.5-10.1) mg/dL Total Bilirubin 0.6 (0.2-1.0) mg/dL AST 15 (15-37) IU/L ALT 33 (14-63) IU/L Alkaline Phosphatase 50 (46-116) U/L Total Protein 6.3 L (6.4-8.2) g/dL Albumin 2.7 L (3.4-5.0) g/dL Globulin 3.6 (2.6-4.0) g/dL Albumin/Globulin Ratio 0.8 L (0.9-1.6) Result Diagrams: 02/02/21 06:16 02/02/21 06:16 Sepsis Event Note - Evaluation Sepsis Screening Result: No Definite Risk - Focused Exam Vital Signs: Vital Signs Temp Pulse Resp BP BP Pulse Ox Pulse Ox 02/02/21 08:13 140/90 02/02/21 08:12 140/90 02/02/21 08:00 36.2 C 67 20 140/90 91 L 02/02/21 05:00 92 L 02/02/21 04:15 36.3 C 64 18 130/70 94 L - Problem List & Annotations (1) Acute respiratory failure due to COVID-19 SNOMED Code(s): 369847790 Code(s): U07.1 - COVID-19; J96.00 - ACUTE RESPIRATORY FAILURE, UNSP W HYPOXIA OR HYPERCAPNIA Status: Acute Current Visit: Yes (2) Pneumonia due to COVID-19 virus SNOMED Code(s): 239919168987554374 Code(s): U07.1 - COVID-19; J12.82 - PNEUMONIA DUE TO CORONAVIRUS DISEASE 2019 Status: Acute Current Visit: Yes - Problem List Review Problem List Initiated/Reviewed/Updated: Yes - My Orders Last 24 Hours: My Active Orders 02/03/21 05:11 CBC WITH AUTO DIFF [HEME] AM COMPREHENSIVE METABOLIC PN,CMP [CHEM] AM 02/04/21 05:11 CBC WITH AUTO DIFF [HEME] AM COMPREHENSIVE METABOLIC PN,CMP [CHEM] AM - Plan Plan:: 60 yo female admitted with acute respiratory failure secondary with COVID 19 pneumonia Satting 88% on RA Encourage proning Incentive spirometry Covid 19 infection Continue Decadron, and baricitinib, finished remdesivir. SHELTON not on CPAP at home CPAP Q HS VTE prophylaxis On xarelto for h/o P.E likely home tomorrow.
[2021-02-02] MEDS: traZODone 50 MG Tab PO PRN (21:09)
[2021-02-02] MEDS: Rivaroxaban 10 MG Tab PO SCH (21:09)
[2021-02-03] MEDS: Albuterol/Ipratropium 3.0-0.5 MG/3 ML Neb Soln NEB SCH ×4 (02:00→14:19)
[2021-02-03] MEDS: Pantoprazole 40 MG Tab.CR PO SCH (06:56)
[2021-02-03 07:33] LABS: BLOOD UREA NITROGEN,BUN 30 mg/dL (7.0-18.0); CARBON DIOXIDE,CO2 30.8 mmol/L (21.0-32.0); CHLORIDE,CL 106 mmol/L (98-107); GLUCOSE RANDOM 100 mg/dL (74-106); POTASSIUM,K 4.5 mmol/L (3.5-5.1); SODIUM,NA 143 mmol/L (136-145)
[2021-02-03] MEDS: Sertraline 50 MG Tab PO SCH (08:07)
[2021-02-03] MEDS: amLODIPine 5 MG Tab PO SCH (08:08)
[2021-02-03] MEDS: Lisinopril 10 MG Tab PO SCH (08:08)
[2021-02-03] MEDS: Dexamethasone 4 MG Tab PO SCH (08:09)
[2021-02-03 11:54] VITALS: BP 129/86; PULSE 61
--- NOTE | 2021-02-03 12:02 | PCM.PN ---
- General Info Date of Service: 02/03/21 - Review of Systems Systems Review Comment:: This 60-year-old female was admitted for COVID-19 with acute respiratory failure when she presented with cough and shortness of breath for two weeks. On 17 January she tested positive for COVID-19. Her chest x-ray and CT chest reported bilateral infiltrates. She was initially place in ICU due to the need of CPAP and heated high flow oxygen. She was treated with baricitinib, dexamethasone, and remdesivir. She did have gradual improvement in her symptoms and today she is satting 91% on Room air at rest and 86% with exertion. She was discharged home with home oxygen 2 L with activity. - Patient Data Vitals - Most Recent: Last Vital Signs Temp 36.1 C 02/03/21 11:53 Pulse 61 02/03/21 11:53 Resp 20 02/03/21 11:53 BP 129/86 02/03/21 11:53 Pulse Ox 92 L 02/03/21 11:53 Weight - Most Recent: 124.058 kg I&O - Last 24 Hours: Intake & Output 02/02/21 02/03/21 02/03/21 22:59 06:59 14:59 Intake Total 980 650 Output Total 1150 1150 Balance -170 -500 Lab Results Last 24 Hours: Laboratory Results - last 24 hr 02/03/21 02/03/21 Range/Units 06:03 06:03 WBC 10.82 (4.0-11.0) K/uL RBC 4.31 (4.30-5.90) M/uL Hgb 13.0 (12.0-16.0) g/dL Hct 40.3 (36.0-46.0) % MCV 93.5 (80.0-98.0) fL MCH 30.2 (27.0-32.0) pg MCHC 32.3 (31.0-37.0) g/dL RDW Std Deviation 49.5 (28.0-62.0) fl RDW Coeff of Ashly 15 (11.0-15.0) % Plt Count 394 (150-400) K/uL MPV 10.10 (7.40-12.00) fL Add Manual Diff YES Neutrophils % (Manual) 60 (48.0-80.0) % Band Neutrophils % 6 % Lymphocytes % (Manual) 22 (16.0-40.0) % Monocytes % (Manual) 10 (0.0-15.0) % Metamyelocytes % 2 % Nucleated RBC % 0.0 /100WBC Absolute Seg Neuts 6.5 H (1.4-5.7) Band Neutrophils # 0.6 Lymphocytes # (Manual) 2.4 (0.6-2.4) Monocytes # (Manual) 1.1 H (0.0-0.8) Absolute Metamyelocyte 0.2 Nucleated RBCs # 0 K/uL Sodium 143 (136-145) mmol/L Potassium 4.5 (3.5-5.1) mmol/L Chloride 106 (98-107) mmol/L Carbon Dioxide 30.8 (21.0-32.0) mmol/L BUN 30 H (7.0-18.0) mg/dL Creatinine 0.8 (0.6-1.0) mg/dL Est Cr Clr Drug Dosing 69.13 mL/min Estimated GFR (MDRD) > 60.0 ml/min Glucose 100 (74-106) mg/dL Calcium 8.6 (8.5-10.1) mg/dL Total Bilirubin 0.5 (0.2-1.0) mg/dL AST 13 L (15-37) IU/L ALT 25 (14-63) IU/L Alkaline Phosphatase 54 (46-116) U/L Total Protein 6.1 L (6.4-8.2) g/dL Albumin 2.6 L (3.4-5.0) g/dL Globulin 3.5 (2.6-4.0) g/dL Albumin/Globulin Ratio 0.7 L (0.9-1.6) Med Orders - Current: Current Medications Hydrocodone Bitart/Acetaminophen (Acetaminophen/Hydrocodone 325-5 Mg Tab) 1 tab PO Q4H PRN PRN Reason: Pain (moderate 4-6) Albuterol (Albuterol 0.083% 2.5 Mg/3 Ml Neb Soln) 2.5 mg NEB Q2H PRN PRN Reason: Shortness Of Breath/wheezing Albuterol/Ipratropium (Albuterol/Ipratropium 3.0-0.5 Mg/3 Ml Neb Soln) 3 ml NEB Q4HRRT [facility] Last Admin: 02/03/21 06:56 Dose: 3 ml Documented by: Amlodipine Besylate (Amlodipine 5 Mg Tab) 10 mg PO DAILY [facility] Last Admin: 02/03/21 08:08 Dose: 10 mg Documented by: Baricitinib (Baricitinib 2 Mg Tab) 4 mg PO DAILY [facility] Stop: 02/10/21 23:16 Last Admin: 02/03/21 08:08 Dose: 4 mg Documented by: Dexamethasone (Dexamethasone 4 Mg Tab) 6 mg PO DAILY [facility] Last Admin: 02/03/21 08:09 Dose: 6 mg Documented by: Guaifenesin/Dextromethorphan (Guaifenesin/Dextromethorphan 100-10 Mg/5 Ml Soln 10 Ml Cup) 10 ml PO Q4H PRN PRN Reason: Cough Last Admin: 01/30/21 10:45 Dose: 10 ml Documented by: Lisinopril (Lisinopril 10 Mg Tab) 30 mg PO DAILY [facility] Last Admin: 02/03/21 08:08 Dose: 30 mg Documented by: Pantoprazole Sodium (Pantoprazole 40 Mg Tab.Cr) 40 mg PO ACBREAKFAST [facility] Last Admin: 02/03/21 06:56 Dose: 40 mg Documented by: Rivaroxaban (Rivaroxaban 10 Mg Tab) 20 mg PO BEDTIME [facility] Last Admin: 02/02/21 21:09 Dose: 20 mg Documented by: Sertraline HCl (Sertraline 100 Mg Tab) 100 mg PO DAILY [facility] Sodium Chloride (Sodium Chloride 0.9% 10 Ml Syringe) 10 ml FLUSH ASDIRECTED PRN PRN Reason: Keep Vein Open Last Admin: 01/27/21 20:42 Dose: 10 ml Documented by: Sodium Chloride (Sodium Chloride 0.9% 2.5 Ml Syringe) 2.5 ml FLUSH ASDIRECTED PRN PRN Reason: Keep Vein Open Last Admin: 01/27/21 20:42 Dose: 2.5 ml Documented by: Trazodone HCl (Trazodone 50 Mg Tab) 50 mg PO BEDTIME PRN PRN Reason: Insomnia Last Admin: 02/02/21 21:09 Dose: 50 mg Documented by: Discontinued Medications Acetaminophen (Acetaminophen 325 Mg Tab) 650 mg PO NOW ONE Stop: 01/27/21 20:20 Last Admin: 01/27/21 20:42 Dose: 650 mg Documented by: Acetaminophen (Acetaminophen 325 Mg Tab) Confirm Administered Dose 650 mg .ROUTE .STK-MED ONE Stop: 01/27/21 20:20 Last Admin: 01/27/21 20:30 Dose: Not Given Documented by: Albuterol (Albuterol 8 Gm Inhaler) 8 gm INH ONETIME STA Stop: 01/27/21 20:06 Last Admin: 01/27/21 20:41 Dose: 8 gm Documented by: Benzonatate (Benzonatate 100 Mg Cap) 200 mg PO ONETIME ONE Stop: 01/27/21 20:07 Last Admin: 01/27/21 20:43 Dose: 200 mg Documented by: Dexamethasone (Dexamethasone 4 Mg Tab) 4 mg PO DAILY [facility] Last Admin: 01/28/21 10:20 Dose: 4 mg Documented by: Enoxaparin Sodium (Enoxaparin 40 Mg/0.4 Ml Syringe) 40 mg SUBCUT Q24H [facility] Sodium Chloride (Normal Saline) 1,000 mls @ 125 mls/hr IV ASDIRECTED [facility] Last Admin: 01/30/21 01:51 Dose: 125 mls/hr Documented by: Remdesivir 200 mg/ Sodium (Chloride) 250 mls @ 250 mls/hr IV ONETIME ONE Stop: 01/27/21 20:52 Last Admin: 01/27/21 21:40 Dose: 250 mls/hr Documented by: Ceftriaxone Sodium/Dextrose 1 (gm/ Premix) 50 mls @ 100 mls/hr IV ONETIME ONE Stop: 01/27/21 22:00 Last Admin: 01/27/21 22:26 Dose: Not Given Documented by: Remdesivir 100 mg/ Sodium (Chloride) 100 mls @ 100 mls/hr IV Q24H [facility] Stop: 01/31/21 21:59 Last Admin: 01/31/21 20:25 Dose: 100 mls/hr Documented by: Influenza Virus Vaccine (Pharmacy To Dose - Influenza Vaccine) 1 each IM ONETIME ONE Stop: 01/28/21 00:13 Influenza Virus Vaccine (Flu Vacc [id number](6mos Up)/Pf 60 Mcg/0.5 Ml Syringe) 60 mcg IM .ONCE ONE Stop: 01/28/21 09:01 Last Admin: 01/28/21 10:22 Dose: Not Given Documented by: Iopamidol (Iopamidol 755 Mg/Ml 500 Ml Multipack Bottle) 75 ml IVPUSH ONETIME STA Stop: 01/27/21 21:59 Last Admin: 01/27/21 21:59 Dose: 75 ml Documented by: Iopamidol (Iopamidol 755 Mg/Ml 500 Ml Multipack Bottle) 75 ml IVPUSH ONETIME STA Stop: 01/27/21 21:59 Last Admin: 01/27/21 22:00 Dose: 75 ml Documented by: Lorazepam (Lorazepam 2 Mg/Ml Sdv) 1 mg IVPUSH Q8H PRN PRN Reason: Anxiety Stop: 01/29/21 08:00 Lorazepam (Lorazepam 2 Mg/Ml Sdv) 0.5 mg IVPUSH ONETIME ONE Stop: 01/29/21 22:23 Last Admin: 01/29/21 22:30 Dose: 0.5 mg Documented by: Ondansetron HCl (Ondansetron 4 Mg/2 Ml Sdv) 4 mg IVPUSH ONETIME ONE Stop: 01/27/21 20:20 Last Admin: 01/27/21 20:43 Dose: 4 mg Documented by: Ondansetron HCl (Ondansetron 4 Mg/2 Ml Sdv) Confirm Administered Dose 4 mg .ROUTE .STK-MED ONE Stop: 01/27/21 20:20 Last Admin: 01/27/21 20:31 Dose: Not Given Documented by: Rivaroxaban (Rivaroxaban 15 Mg Tab) 15 mg PO BID [facility] Last Admin: 01/28/21 01:04 Dose: Not Given Documented by: Rivaroxaban (Rivaroxaban 15 Mg Tab) 15 mg PO BIDMEALS [facility] Last Admin: 01/28/21 01:03 Dose: Not Given Documented by: Rivaroxaban (Rivaroxaban 10 Mg Tab) 20 mg PO BEDTIME [facility] Sertraline HCl (Sertraline 50 Mg Tab) 100 mg PO DAILY [facility] Last Admin: 02/03/21 08:07 Dose: 100 mg Documented by: - Patient Data Lab Results Last 24 hrs: Laboratory Results - last 24 hr 02/03/21 02/03/21 Range/Units 06:03 06:03 WBC 10.82 (4.0-11.0) K/uL RBC 4.31 (4.30-5.90) M/uL Hgb 13.0 (12.0-16.0) g/dL Hct 40.3 (36.0-46.0) % MCV 93.5 (80.0-98.0) fL MCH 30.2 (27.0-32.0) pg MCHC 32.3 (31.0-37.0) g/dL RDW Std Deviation 49.5 (28.0-62.0) fl RDW Coeff of Ashly 15 (11.0-15.0) % Plt Count 394 (150-400) K/uL MPV 10.10 (7.40-12.00) fL Add Manual Diff YES Neutrophils % (Manual) 60 (48.0-80.0) % Band Neutrophils % 6 % Lymphocytes % (Manual) 22 (16.0-40.0) % Monocytes % (Manual) 10 (0.0-15.0) % Metamyelocytes % 2 % Nucleated RBC % 0.0 /100WBC Absolute Seg Neuts 6.5 H (1.4-5.7) Band Neutrophils # 0.6 Lymphocytes # (Manual) 2.4 (0.6-2.4) Monocytes # (Manual) 1.1 H (0.0-0.8) Absolute Metamyelocyte 0.2 Nucleated RBCs # 0 K/uL Sodium 143 (136-145) mmol/L Potassium 4.5 (3.5-5.1) mmol/L Chloride 106 (98-107) mmol/L Carbon Dioxide 30.8 (21.0-32.0) mmol/L BUN 30 H (7.0-18.0) mg/dL Creatinine 0.8 (0.6-1.0) mg/dL Est Cr Clr Drug Dosing 69.13 mL/min Estimated GFR (MDRD) > 60.0 ml/min Glucose 100 (74-106) mg/dL Calcium 8.6 (8.5-10.1) mg/dL Total Bilirubin 0.5 (0.2-1.0) mg/dL AST 13 L (15-37) IU/L ALT 25 (14-63) IU/L Alkaline Phosphatase 54 (46-116) U/L Total Protein 6.1 L (6.4-8.2) g/dL Albumin 2.6 L (3.4-5.0) g/dL Globulin 3.5 (2.6-4.0) g/dL Albumin/Globulin Ratio 0.7 L (0.9-1.6) Result Diagrams: 02/03/21 06:03 02/03/21 06:03 Sepsis Event Note - Evaluation Sepsis Screening Result: No Definite Risk - Focused Exam Vital Signs: Vital Signs Temp Pulse Pulse Resp BP BP Pulse Ox 02/03/21 11:53 36.1 C 61 20 129/86 92 L 02/03/21 08:08 121/80 02/03/21 08:00 35.7 C L 71 22 H 121/80 92 L 02/03/21 04:00 36.3 C 67 20 128/70 90 L 02/03/21 00:15 36.2 C 68 20 130/71 91 L - Problem List & Annotations (1) Acute respiratory failure due to COVID-19 SNOMED Code(s): 910223093 Code(s): U07.1 - COVID-19; J96.00 - ACUTE RESPIRATORY FAILURE, UNSP W HYPOXIA OR HYPERCAPNIA Status: Acute Current Visit: Yes (2) Pneumonia due to COVID-19 virus SNOMED Code(s): 982589919275352397 Code(s): U07.1 - COVID-19; J12.82 - PNEUMONIA DUE TO CORONAVIRUS DISEASE 2019 Status: Acute Current Visit: Yes - Problem List Review Problem List Initiated/Reviewed/Updated: Yes - My Orders Last 24 Hours: My Active Orders 02/03/21 11:51 Ready for Discharge [RC] PER UNIT ROUTINE 02/04/21 05:11 CBC WITH AUTO DIFF [HEME] AM COMPREHENSIVE METABOLIC PN,CMP [CHEM] AM - Plan Plan:: 60 yo female admitted with acute respiratory failure secondary with COVID 19 pneumonia Satting 88% on RA Encourage proning Incentive spirometry Covid 19 infection Continue Decadron, and baricitinib, finished remdesivir. SHEL[place] not on CPAP at home CPAP Q HS VTE prophylaxis On xarelto for h/o P.E likely home tomorrow.
[2021-02-04] MEDS ORDERED: Sertraline 100 MG Tab PO SCH (09:00)
== END 2021-02-03 16:15 | disposition home or self-care (01) | DRG 177 ==
LOC: MW.ED 19:26 → MW.ICU 22:39 → MW.MS 02-01 18:00
PROVIDERS: ADMIT Hospitalist; ATTEND Hospitalist
PROC: XW033E5 Introduction of Remdesivir Anti-infective into Peripheral Vein, Percutaneous Approach, New Technology Group 5 (ICD-10-PCS; principal; 2021-01-27)
PROC: XW0DXM6 Introduction of Baricitinib into Mouth and Pharynx, External Approach, New Technology Group 6 (ICD-10-PCS; 2021-01-27)
PROC: 3E0DX3Z Introduction of Anti-inflammatory into Mouth and Pharynx, External Approach (ICD-10-PCS; 2021-01-27)
PROC: 5A0945A Assistance with Respiratory Ventilation, 24-96 Consecutive Hours, High Flow/Velocity Cannula (ICD-10-PCS; 2021-01-27)
PROC: 5A09457 Assistance with Respiratory Ventilation, 24-96 Consecutive Hours, Continuous Positive Airway Pressure (ICD-10-PCS; 2021-01-27)
PROC: 8E0ZXY6 Isolation (ICD-10-PCS; 2021-01-27)
DX: U07.1 COVID-19 (principal); J12.82 Pneumonia due to coronavirus disease 2019; J96.01 Acute respiratory failure with hypoxia; Z68.41 Body mass index [BMI] 40.0-44.9, adult; I10 Essential (primary) hypertension; M19.90 Unspecified osteoarthritis, unspecified site; G47.33 Obstructive sleep apnea (adult) (pediatric); F32.A Depression, unspecified; E66.9 Obesity, unspecified; Z79.899 Other long term (current) drug therapy; Z79.01 Long term (current) use of anticoagulants; Z86.010 Personal history of colon polyps; Z90.710 Acquired absence of both cervix and uterus; Z87.891 Personal history of nicotine dependence
CPT/HCPCS: 36415; 71045; 71045-26; 71275; 71275-26; 80048; 80053; 82248; 83880; 84484; 85025; 85379; 85610; 85730; 86140; 87804; 93005; 94640; 94660; 96365; 96375; 99285-25; A9270-GY; J2060; J2405; J7030; J7050; J7620-GY; J8540; Q9967; U0002

== ENCOUNTER 2022-05-17 09:58 | Day surgery (SDC) | payer BC ==
[~2022-05-17 09:58] MED LIST: Lactated Ringers 1,000 ML IV SCH; Sodium Chloride 0.9% 10 ML Syringe FLUSH PRN; Sodium Chloride 0.9% 2.5 ML Syringe FLUSH PRN; Sodium Chloride 0.9% 20 ML SDV IV PRN
[2022-05-17] MEDS ORDERED: Lidocaine 2% 5 ML SDV ONE (10:46)
[2022-05-17] MEDS ORDERED: Propofol 200 MG/20 ML SDV ONE ×2 (10:47→11:01)
[2022-05-17] MEDS ORDERED: Ondansetron 4 MG/2 ML SDV ONE (10:51)
[2022-05-17 11:42] VITALS: PULSE 60
[2022-05-17 11:57] VITALS: BP 155/74
== END 2022-05-17 13:10 | disposition home or self-care (01) ==
LOC: MW.SDS 09:58
PROVIDERS: ATTEND Surgery
DX: Z12.11 Encounter for screening for malignant neoplasm of colon (principal); D12.3 Benign neoplasm of transverse colon; D12.8 Benign neoplasm of rectum; K29.50 Unspecified chronic gastritis without bleeding; K21.00 Gastro-esophageal reflux disease with esophagitis, without bleeding; K44.9 Diaphragmatic hernia without obstruction or gangrene; I10 Essential (primary) hypertension; F41.9 Anxiety disorder, unspecified; F32.A Depression, unspecified; M17.12 Unilateral primary osteoarthritis, left knee; R11.2 Nausea with vomiting, unspecified; E66.9 Obesity, unspecified; Z86.010 Personal history of colon polyps; Z86.711 Personal history of pulmonary embolism; Z86.718 Personal history of other venous thrombosis and embolism; Z79.01 Long term (current) use of anticoagulants; Z86.79 Personal history of other diseases of the circulatory system; Z98.890 Other specified postprocedural states; Z87.891 Personal history of nicotine dependence
CPT/HCPCS: 43239; 45380; 45385; J2405; J2704; J7120; 00813; J3490

== ENCOUNTER 2024-07-06 14:37 | Emergency (ER) | payer BC ==
[2024-07-06 15:12] VITALS: BP 175/84; PULSE 67
== END 2024-07-06 18:19 | disposition home or self-care (01) ==
LOC: MW.ED 14:37
DX: S76.212A Strain of adductor muscle, fascia and tendon of left thigh, initial encounter (principal); M25.552 Pain in left hip; M19.90 Unspecified osteoarthritis, unspecified site; I10 Essential (primary) hypertension; E66.9 Obesity, unspecified; Z68.41 Body mass index [BMI] 40.0-44.9, adult; Z75.3 Unavailability and inaccessibility of health-care facilities; Z79.899 Other long term (current) drug therapy; Z90.710 Acquired absence of both cervix and uterus; X58.XXXA Exposure to other specified factors, initial encounter
CPT/HCPCS: 73502-26-LT; 73502-LT; 99282; 99283